=== PATIENT | male | born 1950 | race African-American/Black ===

== ENCOUNTER 2016-09-08 13:01 | Emergency (ER) | payer OTHER ==
[~2016-09-08] VITALS: Ht 172.7 cm; Wt 64.0 kg
[~2016-09-08 13:01] MED LIST: ADVA500A INH; COMBAER INH; METR-1 PO; PERC5TAB12 PO
[2016-09-08 13:02] VITALS: BP 130/69; PULSE 94; RESP 20; TEMP 98.6; O2SAT 95
[2016-09-08] MEDS ORDERED: IPRAAER INH (13:41)
[2016-09-08] MEDS ORDERED: ADVA500A INH (13:41)
--- NOTE | 2016-09-08 13:57 | PD ---
HPI Chief Complaint: Musculoskeletal Complaint Time Seen by Provider: 13:54 Travel History International Travel<30 days: No Contact w/Intl Traveler<30days: No Traveled to known affect area: No History of Present Illness HPI Patient is a 65-year-old male presenting to emergency for evaluation of left lower back pain. Patient states the pain started one week ago when he lifted a lawnmower into his truck. She states the pain is radiating down the back of his left leg as well. He denies any saddle paresthesia, dysuria, weakness, numbness. Patient has a history of sciatica, he's been utilizing Aleve with no relief of his symptoms. PFSH Past Medical History Arthritis: Yes Asthma: Yes Autoimmune Disease: No Blood Disorders: No Anxiety: Yes Depression: Yes Heart Rhythm Problems: No Cancer: No Cardiac Catheterization: Yes ( ABOUT 15 YEARS AGO) High Cholesterol: Yes Chemotherapy: No Chest Pain: No COPD: Yes Diabetes: No Diminished Hearing: No Endocrine: No Gastrointestinal Disorders: No GERD: Yes Glaucoma: No Genitourinary: No Hepatitis: Yes (HEP C; PT STATES CANNOT NOW FIND EVIDENCE OF IT) Hiatal Hernia: No Hypertension: Yes Kidney Stones: Yes Musculoskeletal: No Neurologic: No Psychiatric: No Reproductive: No Respiratory: Yes (Asthma ) Myocardial Infarction: No Radiation Therapy: No Renal Failure: No Sickle Cell Disease: No Sleep Apnea: No Thyroid Disease: No Ulcer: No Past Surgical History Abdominal Surgery: No AICD: No Arteriovenous Shunt: No Cardiac Surgery: Yes (HEART CATHETERIZATION) Ear Surgery: No Endocrine Surgery: No Eye Surgery: No Genitourinary Surgery: Yes (BX OF PROSTATE 04/07/06 MON; LITHOSTROPY FOR STONES) Gynecologic Surgery: No Insulin Pump: No Neurologic Surgery: No Oral Surgery: No Pacemaker: No Thoracic Surgery: No Other Surgery: Yes (BX OF PROSTATE, ) Social History Alcohol Use: Yes (OCC. LAST INTAKE 3 WEEKS) Tobacco Use: No Substance Use: No Allergies-Medications (Allergen,Severity, Reaction): Coded Allergies: No Known Allergies (Verified , 09/08/16) Reported Meds & Prescriptions Reported Meds & Active Scripts Active Flexeril (Cyclobenzaprine HCl) 10 Mg Tab 10 Mg PO TID PRN 10 Days Ibuprofen 800 Mg Tab 800 Mg PO Q8H PRN 10 Days Reported Combivent Respimat Inh (Ipratropium-Albuterol Inh) 20-100 Alf/Act Aero 1 Puff INH QID Combivent Respimat Inh (Ipratropium-Albuterol Inh) 20-100 Alf/Act Aero 1 Puff INH QID Advair Diskus Inh (Fluticasone-Salmeterol Inh) 500-50 Mcg/Blist Aer 1 Puff INH BID Rinse mouth after use. Review of Systems Except as stated in HPI: all other systems reviewed are Neg Musculoskeletal: Positive: Myalgias, Cramping, Pain Physical Exam Narrative GENERAL: Thin, well-developed, alert elderly male. Resting comfortably in no acute distress. SKIN: Focused skin assessment warm/dry. HEAD: Atraumatic. Normocephalic. EYES: Pupils equal and round. No scleral icterus. No injection or drainage. ENT: No nasal bleeding or discharge. Mucous membranes pink and moist. NECK: Trachea midline. No JVD. CARDIOVASCULAR: Regular rate and rhythm. No murmur appreciated. RESPIRATORY: No accessory muscle use. Clear to auscultation. Breath sounds equal bilaterally. GASTROINTESTINAL: Abdomen soft, non-tender, nondistended. Hepatic and splenic margins not palpable. MUSCULOSKELETAL: No obvious deformities. No clubbing. No cyanosis. No edema. Patient per spinal musculature in the lumbar region on the left side. 5/5 muscle strength in bilateral lower extremities, patient is neurovascularly intact. NEUROLOGICAL: Awake and alert. No obvious cranial nerve deficits. Motor grossly within normal limits. Normal speech. PSYCHIATRIC: Appropriate mood and affect; insight and judgment normal. Data Data Last Documented VS Vital Signs Date Time Temp Pulse Resp B/P Pulse Ox O2 Delivery O2 Flow Rate FiO2 09/08/16 13:02 98.6 94 20 130/69 95 Room Air Orders Ketorolac Inj (Toradol Inj) (09/08/16 14:00) Orphenadrine Inj (Norflex Inj) (09/08/16 14:00) Dexamethasone Inj (Decadron Inj) (09/08/16 14:00) Spine, Lumbar - Ltd (Ap & Lat) (09/08/16 ) MDM Medical Decision Making Medical Screen Exam Complete: Yes Emergency Medical Condition: Yes Interpretation(s) Vital Signs Date Time Temp Pulse Resp B/P Pulse Ox O2 Delivery O2 Flow Rate FiO2 09/08/16 13:02 98.6 94 20 130/69 95 Room Air Differential Diagnosis Strain versus sprain versus spasm versus cardiac pain versus sciatica versus fracture versus other Narrative Course Patient is a 65-year-old male presenting to emergency for evaluation of left lower back pain that was brought on after lifting a lawnmower into the bed of his truck one week ago. Patient appears consistent with a skeletal skeletal strain however we'll check a lumbar x-ray. Patient will be given Toradol, Norflex, dexamethasone the emergency department. We will reassess. X-ray of the lumbar spine shows moderate degenerative disc change at the L4 to L5 and L5 to S1 levels. Scoliosis, multiple right renal calculi. Patient's pain again is on the left and he denies any urinary complaints at this time. 1515- patient reports improvement in his pain. Patient was discharged home with prescriptions for a muscle relaxant as well as a short course of pain medication. He is encouraged to follow-up with his primary doctor, apply warm moist heat to affected area, continue range of motion exercises. He was advised to avoid exacerbating activities. Additionally patient was encouraged to return to emergency department for any new or worsening symptoms. Patient verbalized understanding of instructions. Patient is stable for discharge. Diagnosis Primary Impression: Strain of lumbar paraspinal muscle Qualified Code: S39.012A - Strain of lumbar paraspinal muscle, initial encounter Additional Impression: Sciatic leg pain Referrals: Primary Care Physician 3 days Patient Instructions: General Instructions, Muscle Spasm (ED), Muscle Strain ( ED), Sciatica (ED) Additional Instructions: Follow up with primary doctor Take medications as directed Apply warm moist heat to affected area, continue range of motion exercises, avoid bed rest, avoid exacerbating activities Return to the emergency department for New or worsening symptoms Med/Other Pt SpecificInfo: Prescription(s) given Scripts Cyclobenzaprine (Flexeril)10 Mg Tab10 Mg PO TID PRN (MUSCLE SPASM) 10 Days Ref 0 Prov:Ara Walters 09/08/16 Ibuprofen 800 Mg [id number] Mg PO Q8H PRN (Pain/Inflammation) 10 Days Ref 0 Prov:Ara Walters 09/08/16 Disposition: 01 DISCHARGE HOME Condition: Stable Ara Walters September 08, 2016 13:57
[2016-09-08] MEDS ORDERED: ORPHENADRINE INJ 60 MG/2 ML AMP IM ONE (14:00)
[2016-09-08] MEDS ORDERED: DEXAMETHASONE SOD PHOS 20 MG/5 ML VIAL IM ONE (14:00)
[2016-09-08] MEDS ORDERED: KETOROLAC TROMETHAMINE 60 MG/2 ML (IM) VIAL IM ONE (14:00)
--- NOTE | 2016-09-08 14:27 | RADRPT ---
EXAM DATE/TIME: 09/08/2016 14:02 [facility] COMPARISON: No previous studies available for comparison. 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 MEDICAL HISTORY : None. SURGICAL HISTORY : None. ENCOUNTER: Initial ACUITY: 1 day PAIN SCORE: 5/10 LOCATION: Bilateral L-spine FINDINGS: There are 5 [id number] lumbar-type vertebra. Degenerative disc changes are present L4-5 and L5-S 1 levels with disc space narrowing hypertrophic change. There is a minimal scoliosis. The sacrum is i ntact. There are multiple right renal calculi noted. There is no acute fracture or malalignment. CONCLUSION: 1. Moderate degenerative disc change at the L4-5 and L5-S1 levels. 2. Mild scoliosis. 3. Multiple right renal calculi. Arturo Wu MD on September 08, 2016 at 14:23 Board Certified Radiologist. This report was verified electronically.
[2016-09-08] MEDS ORDERED: IBUP800T23 PO (15:19)
[2016-09-08] MEDS ORDERED: CYCL1TAB29 PO (15:19)
== END 2016-09-08 16:10 | disposition home or self-care (01) ==
LOC: NEPD 13:01
DX: S39.012A Strain of muscle, fascia and tendon of lower back, initial encounter (principal); X50.0XXA Overexertion from strenuous movement or load, initial encounter; Y93.89 Activity, other specified
CPT/HCPCS: 72100; 96372; 99283; J1100; J1885; J2360

== ENCOUNTER 2017-02-12 20:44 | Emergency (ER) | payer OTHER ==
[~2017-02-12] VITALS: Ht 165.1 cm; Wt 68.0 kg
[~2017-02-12 20:44] MED LIST changes: -COMBAER INH; +CYCL1TAB29 PO; +IBUP800T23 PO; +IPRAAER INH; -METR-1 PO; -PERC5TAB12 PO
[2017-02-12 20:46] VITALS: BP 175/105; TEMP 98.7; O2SAT 89
[2017-02-12] MEDS ORDERED: SODIUM CHLORIDE 0.9% FLUSH 10 ML FLUSH IVF PRN (21:15)
[2017-02-12] MEDS ORDERED: methylPREDNISolone SOD SUCC 125 MG/2 ML VIAL IV PUSH ONE (21:15)
[2017-02-12] MEDS: RESP: ALBUTEROL 2.5 MG/IPRATROPIUM 0.5 MG NEB (SCH) INH ×3 (21:29→23:08)
[2017-02-12 21:33] VITALS: O2SAT 97
--- NOTE | 2017-02-12 21:51 | RADRPT ---
EXAM DATE/TIME: 02/12/2017 21:12 [facility] COMPARISON: CHEST SINGLE AP, September 15, 2014, 21:33. INDICATIONS : Short of breath. MEDICAL HISTORY : Asthma. SURGICAL HISTORY : None. ENCOUNTER: Initial ACUITY: 1 day PAIN SCORE: 0/10 LOCATION: Bilateral chest FINDINGS: A single view of the chest demonstrates the lungs to be symmetrically aerated without evidence of mas s, infiltrate or effusion. The cardiomediastinal contours are unremarkable. Osseous structures are intact. CONCLUSION: No acute disease. No significant change has occurred. Urban Oliver MD on February 12, 2017 at 21:49 Board Certified Radiologist. This report was verified electronically.
--- NOTE | 2017-02-12 21:53 | PD ---
HPI Chief Complaint: Respiratory Symptoms Time Seen by Provider: 21:06 Travel History International Travel<30 days: No Contact w/Intl Traveler<30days: No Traveled to known affect area: No History of Present Illness HPI Patient comes in for evaluation of asthma exacerbation ongoing for the past 2 days. Patient reports over the past 2 weeks has been having asthma flareup started getting bad 2 days ago. Patient states he saw his primary care doctor has been taking steroids and unknown antibiotic. Patient states he takes is albuterol with minimal improvement of symptoms. Symptoms continue progressively to get worse. Patient reports exertional also makes his breathing worse. Patient states this feels similar to his previous asthma exacerbations, but is not being well-controlled on current medications. Denies any fevers, chest pain, nausea, vomiting, abdominal pain, numbness or tingling, or headaches. PFSH Past Medical History Arthritis: Yes Asthma: Yes Autoimmune Disease: No Blood Disorders: No Anxiety: Yes Depression: Yes Heart Rhythm Problems: No Cancer: No Cardiac Catheterization: Yes ( ABOUT 15 YEARS AGO) High Cholesterol: Yes Chemotherapy: No Chest Pain: No COPD: Yes Diabetes: No Diminished Hearing: No Endocrine: No Gastrointestinal Disorders: No GERD: Yes Glaucoma: No Genitourinary: No Hepatitis: Yes (HEP C; PT STATES CANNOT NOW FIND EVIDENCE OF IT) Hiatal Hernia: No Hypertension: Yes Kidney Stones: Yes Musculoskeletal: No Neurologic: No Psychiatric: No Reproductive: No Respiratory: Yes (asthma) Myocardial Infarction: No Radiation Therapy: No Renal Failure: No Sickle Cell Disease: No Sleep Apnea: No Thyroid Disease: No Ulcer: No Past Surgical History Abdominal Surgery: No AICD: No Arteriovenous Shunt: No Cardiac Surgery: Yes (HEART CATHETERIZATION) Ear Surgery: No Endocrine Surgery: No Eye Surgery: No Genitourinary Surgery: Yes (BX OF PROSTATE 04/07/06 MON; LITHOSTROPY FOR STONES) Gynecologic Surgery: No Insulin Pump: No Neurologic Surgery: No Oral Surgery: No Pacemaker: No Thoracic Surgery: No Other Surgery: Yes (BX OF PROSTATE, ) Social History Alcohol Use: Yes (OCC. LAST INTAKE 3 WEEKS) Tobacco Use: No Substance Use: No Allergies-Medications (Allergen,Severity, Reaction): Coded Allergies: No Known Allergies (Verified , 09/08/16) Reported Meds & Prescriptions Reported Meds & Active Scripts Active Prednisone 20 Mg Tab 20 Mg PO BID Zithromax Z-Boaz (Azithromycin) 250 Mg Dspk 250 Mg PO DIRECTED 500 MG (2 tabs) day 1, then 1 tab days 2-5. Flexeril (Cyclobenzaprine HCl) 10 Mg Tab 10 Mg PO TID PRN 10 Days Ibuprofen 800 Mg Tab 800 Mg PO Q8H PRN 10 Days Reported Combivent Respimat Inh (Ipratropium-Albuterol Inh) 20-100 Snf/Act Aero 1 Puff INH QID Combivent Respimat Inh (Ipratropium-Albuterol Inh) 20-100 Snf/Act Aero 1 Puff INH QID Advair Diskus Inh (Fluticasone-Salmeterol Inh) 500-50 Mcg/Blist Aer 1 Puff INH BID Rinse mouth after use. Review of Systems Except as stated in HPI: all other systems reviewed are Neg Physical Exam Narrative GENERAL: Well-developed, well nourished, mild respiratory distress, and non-ill appearing. SKIN: Focused skin assessment warm and dry. HEAD: Atraumatic. Normocephalic. EYES: Pupils equal and round. EOMI. No scleral icterus. No injection or drainage. ENT: No nasal bleeding or discharge. Mucous membranes pink and moist. NECK: Trachea midline. Supple. No nuclear rigidity. CARDIOVASCULAR: Regular rate and rhythm. No murmur appreciated. RESPIRATORY: Accessory muscle use. Mild respiratory distress. Wheezing and decreased breath sounds noted throughout. Breath sounds are tight. Patient struggling to speak in full sentences. MUSCULOSKELETAL: No obvious deformities. No clubbing. No cyanosis. No edema. Full range of motion. NEUROLOGICAL: Awake and alert. No obvious cranial nerve deficits. Motor grossly within normal limits. Normal speech. PSYCHIATRIC: Appropriate mood and affect; insight and judgment normal. Data Data Last Documented VS Vital Signs Date Time Temp Pulse Resp B/P (MAP) Pulse Ox O2 Delivery O2 Flow Rate FiO2 02/13/17 02:45 02/13/17 01:38 92 18 97 Nasal Cannula 2.00 02/12/17 20:46 98.7 Orders Orders Complete Blood Count With Diff (02/12/17 21:07) Basic Metabolic Panel (Bmp) (02/12/17 21:07) Act Partial Throm Time (Ptt) (02/12/17 21:07) Prothrombin Time / Inr (Pt) (02/12/17 21:07) Magnesium (Mg) (02/12/17 21:07) Arterial Blood Gas (Abg) (02/12/17 21:07) Iv Access Insert/Monitor (02/12/17 21:07) Electrocardiogram (02/12/17 21:07) Ecg Monitoring (02/12/17 21:07) Oximetry (02/12/17 21:07) Oxygen Administration (02/12/17 21:07) Chest, Single Ap (02/12/17 21:07) Sodium Chloride 0.9% Flush (Ns Flush) (02/12/17 21:15) Methylprednisolone So Succ Inj (Solumedr (02/12/17 21:15) Albuterol-Ipratropium Neb (Duoneb Neb) (02/12/17 21:15) Albuterol-Ipratropium Neb (Duoneb Neb) (02/12/17 22:45) Labs Laboratory Tests Test 02/12/17 21:30 02/12/17 21:57 White Blood Count 10.8 TH/MM3 Red Blood Count 5.76 MIL/MM3 Hemoglobin 15.3 GM/DL Hematocrit 48.6 % Mean Corpuscular Volume 84.4 FL Mean Corpuscular Hemoglobin 26.7 PG Mean Corpuscular Hemoglobin Concent 31.6 % Red Cell Distribution Width 14.4 % Platelet Count 284 TH/MM3 Mean Platelet Volume 8.5 FL Neutrophils (%) (Auto) 76.0 % Lymphocytes (%) (Auto) 14.0 % Monocytes (%) (Auto) 7.2 % Eosinophils (%) (Auto) 1.9 % Basophils (%) (Auto) 0.9 % Neutrophils # (Auto) 8.2 TH/MM3 Lymphocytes # (Auto) 1.5 TH/MM3 Monocytes # (Auto) 0.8 TH/MM3 Eosinophils # (Auto) 0.2 TH/MM3 Basophils # (Auto) 0.1 TH/MM3 CBC Comment DIFF FINAL Differential Comment Prothrombin Time 10.8 SEC Prothromb Time International Ratio 1.0 RATIO Activated Partial Thromboplast Time 26.8 SEC Blood Urea Nitrogen 11 MG/DL Creatinine 1.09 MG/DL Random Glucose 89 MG/DL Calcium Level 9.3 MG/DL Magnesium Level 2.0 MG/DL Sodium Level 142 MEQ/L Potassium Level 3.8 MEQ/L Chloride Level 108 MEQ/L Carbon Dioxide Level 26.0 MEQ/L Anion Gap 8 MEQ/L Estimat Glomerular Filtration Rate 82 ML/MIN Blood Gas Puncture Site RT RADIAL Blood Gas Patient Temperature 98.6 Blood Gas HCO3 28 mmol/L Blood Gas Base Excess 3.8 mmol/L Blood Gas Oxygen Saturation 98 % Arterial Blood pH 7.39 Arterial Blood Partial Pressure CO2 48 mmHg Arterial Blood Partial Pressure O2 201 mmHG Arterial Blood Oxygen Content 21.0 Vol % Arterial Blood Carboxyhemoglobin 0.8 % Arterial Blood Methemoglobin 0.6 % Blood Gas Hemoglobin 15.0 G/DL Oxygen Delivery Device NASAL CANNULA Blood Gas Liter Flow 3 L/M MDM Medical Decision Making Medical Screen Exam Complete: Yes Emergency Medical Condition: Yes Differential Diagnosis Asthma exacerbation, COPD exacerbation, pneumonia, electrolyte abnormality, respiratory acidosis, respiratory alkalosis, other Narrative Course Patient was seen and examined. IV was established and patient was placed on cardiac monitoring. Initial laboratory radiological studies were ordered. Patient was given 60 mg of IV Solu-Medrol secondary to patient's very taken 2 doses steroids today along with DuoNeb 3. Will await to see how patient responds and reevaluate for further treatment. 2250 patient is reassessed status post initial DuoNeb treatment. Patient reports improvement of symptoms however continues using accessory muscles to breathe. Lungs reassessed though having some wheezing throughout both breath sounds overall have improved. Additional DuoNeb nebs were ordered. Patient speaking in full sentences easier now. Patient signed out to Dr. Rodriguez at the end of my shift. Please see his documentation for final diagnosis and disposition. Scripts Prednisone (Prednisone) 20 Mg Tab 20 MG PO BID, #10 TAB 0 Refills Prov: Jean Paul Rodriguez MD 02/13/17 Azithromycin (Zithromax Z-Boaz) 250 Mg Dspk 250 MG PO DIRECTED for Infection, #1 DSPK 0 Refills 500 MG (2 tabs) day 1, then 1 tab days 2-5. Prov: Jean Paul Rodriguez MD 02/13/17 Karan Zapata Feb 12, 2017 21:53
[2017-02-12 22:01] LABS: AUTOMATED NEUTROPHIL # 8.2 TH/MM3 (1.8-7.7); BASOPHIL # 0.1 TH/MM3 (0-0.2); BASOPHIL % 0.9 % (0.0-2.0); EOSINOPHIL # 0.2 TH/MM3 (0-0.4); EOSINOPHIL % 1.9 % (0.0-4.0); HEMATOCRIT 48.6 % (39.0-51.0); HEMO FLAGS DIFF FINAL; LYMPHOCYTE # 1.5 TH/MM3 (1.0-4.8); MEAN CELL VOLUME 84.4 FL (80.0-100.0); MEAN CORPUSCULAR HEMOGLOBIN 26.7 PG (27.0-34.0); MEAN CORPUSCULAR HGB CONC 31.6 % (32.0-36.0); MONO % 7.2 % (0.0-8.0); PLATELET COUNT 284 TH/MM3 (150-450); RED BLOOD COUNT 5.76 MIL/MM3 (4.50-5.90); RED CELL DISTRIBUTION WIDTH 14.4 % (11.6-17.2); WHITE BLOOD COUNT 10.8 TH/MM3 (4.0-11.0)
[2017-02-12 22:07] LABS: APTT (PATIENT) 26.8 SEC (24.3-30.1); PROTHROMBIN TIME - PATIENT 10.8 SEC (9.8-11.6)
[2017-02-12 22:22] LABS: POTASSIUM 3.8 MEQ/L (3.5-5.1)
[2017-02-13 01:38] VITALS: BP 140/81; PULSE 92; RESP 18; O2SAT 97
[2017-02-13 01:43] LABS: BLOOD GAS BASE EXCESS 3.8 mmol/L (-2-2); BLOOD GAS CARBOXYHEMOGLOBIN 0.8 % (0-4); BLOOD GAS HCO3 28 mmol/L (22-26); BLOOD GAS METHEMOGLOBIN 0.6 % (0-2); BLOOD GAS O2 HGB SATURATION 98 % (90-100); BLOOD GAS PCO2 48 mmHg (38-42); BLOOD GAS PO2 201 mmHG (61-120); CRITICAL VALUE NO; DRAW SITE RT RADIAL; LITER FLOW 3 L/M; NUMBER OF ARTERIAL PUNCTURES 1; OXYGEN DEVICE NASAL CANNULA; TEMP CORR TO 98.6; ULNAR PULSE PRESENT
[2017-02-13 01:44] LABS: STAT YES
--- NOTE | 2017-02-13 02:20 | PD ---
Physical Exam Narrative Patient was seen and examined with my podiatric assistant. Data Data Last Documented VS Vital Signs Date Time Temp Pulse Resp B/P (MAP) Pulse Ox O2 Delivery O2 Flow Rate FiO2 02/13/17 01:38 92 18 140/81 (100) 97 Nasal Cannula 2.00 02/12/17 20:46 98.7 Orders Orders Complete Blood Count With Diff (02/12/17 21:07) Basic Metabolic Panel (Bmp) (02/12/17 21:07) Act Partial Throm Time (Ptt) (02/12/17 21:07) Prothrombin Time / Inr (Pt) (02/12/17 21:07) Magnesium (Mg) (02/12/17 21:07) Arterial Blood Gas (Abg) (02/12/17 21:07) Iv Access Insert/Monitor (02/12/17 21:07) Electrocardiogram (02/12/17 21:07) Ecg Monitoring (02/12/17 21:07) Oximetry (02/12/17 21:07) Oxygen Administration (02/12/17 21:07) Chest, Single Ap (02/12/17 21:07) Sodium Chloride 0.9% Flush (Ns Flush) (02/12/17 21:15) Methylprednisolone So Succ Inj (Solumedr (02/12/17 21:15) Albuterol-Ipratropium Neb (Duoneb Neb) (02/12/17 21:15) Albuterol-Ipratropium Neb (Duoneb Neb) (02/12/17 22:45) Labs Laboratory Tests Test 02/12/17 21:30 02/12/17 21:57 White Blood Count 10.8 TH/MM3 Red Blood Count 5.76 MIL/MM3 Hemoglobin 15.3 GM/DL Hematocrit 48.6 % Mean Corpuscular Volume 84.4 FL Mean Corpuscular Hemoglobin 26.7 PG Mean Corpuscular Hemoglobin Concent 31.6 % Red Cell Distribution Width 14.4 % Platelet Count 284 TH/MM3 Mean Platelet Volume 8.5 FL Neutrophils (%) (Auto) 76.0 % Lymphocytes (%) (Auto) 14.0 % Monocytes (%) (Auto) 7.2 % Eosinophils (%) (Auto) 1.9 % Basophils (%) (Auto) 0.9 % Neutrophils # (Auto) 8.2 TH/MM3 Lymphocytes # (Auto) 1.5 TH/MM3 Monocytes # (Auto) 0.8 TH/MM3 Eosinophils # (Auto) 0.2 TH/MM3 Basophils # (Auto) 0.1 TH/MM3 CBC Comment DIFF FINAL Differential Comment Prothrombin Time 10.8 SEC Prothromb Time International Ratio 1.0 RATIO Activated Partial Thromboplast Time 26.8 SEC Blood Urea Nitrogen 11 MG/DL Creatinine 1.09 MG/DL Random Glucose 89 MG/DL Calcium Level 9.3 MG/DL Magnesium Level 2.0 MG/DL Sodium Level 142 MEQ/L Potassium Level 3.8 MEQ/L Chloride Level 108 MEQ/L Carbon Dioxide Level 26.0 MEQ/L Anion Gap 8 MEQ/L Estimat Glomerular Filtration Rate 82 ML/MIN Blood Gas Puncture Site RT RADIAL Blood Gas Patient Temperature 98.6 Blood Gas HCO3 28 mmol/L Blood Gas Base Excess 3.8 mmol/L Blood Gas Oxygen Saturation 98 % Arterial Blood pH 7.39 Arterial Blood Partial Pressure CO2 48 mmHg Arterial Blood Partial Pressure O2 201 mmHG Arterial Blood Oxygen Content 21.0 Vol % Arterial Blood Carboxyhemoglobin 0.8 % Arterial Blood Methemoglobin 0.6 % Blood Gas Hemoglobin 15.0 G/DL Oxygen Delivery Device NASAL CANNULA Blood Gas Liter Flow 3 L/M MDM Supervised Visit with DEYA: Yes Interpretation(s) Last Impressions Chest X-Ray 02/12/172106 Signed Impressions: Service Date/Time: Friday, February 12, 2017 21:12 - CONCLUSION: No acute disease. No significant change has occurred. Urban Oliver MD 2:18 AM. CBC within normal limit. ABG at 3 L nasal cannula, pH 7.39. PCO2 40. PO2 201. BMP within normal limit. Narrative Course Patient was offered admission. Patient refused. Patient wants to go home. Diagnosis Primary Impression: Acute asthma exacerbation Qualified Codes: J45.51 - Severe persistent asthma with (acute) exacerbation Patient Instructions: General Instructions Additional Instruction: Continue with nebulizer treatment at home every 4 hours as needed. Prednisone and Z-Boaz as directed. Follow-up with personal physician. Return if worse. Med/Other Pt SpecificInfo: Prescription(s) given Scripts Prednisone (Prednisone) 20 Mg Tab 20 MG PO BID, #10 TAB 0 Refills Prov: Jean Paul Rodriguez MD 02/13/17 Azithromycin (Zithromax Z-Boaz) 250 Mg Dspk 250 MG PO DIRECTED for Infection, #1 DSPK 0 Refills 500 MG (2 tabs) day 1, then 1 tab days 2-5. Prov: Jean Paul Rodriguez MD 02/13/17 Disposition: 01 DISCHARGE HOME Condition: Stable Jean Paul Rodriguez MD Feb 13, 2017 02:20
[2017-02-13] MEDS ORDERED: ZITHTAB PO (02:25)
[2017-02-13] MEDS ORDERED: PRED20 PO (02:25)
--- NOTE | 2017-02-13 12:24 | EKG ---
Date Performed: 02/12/2017 Time Performed: 20:48:58 PTAGE: 66 years EKG: SINUS TACHYCARDIA POSSIBLE RIGHT ATRIAL ENLARGEMENT ABNORMAL RHYTHM ECG Compared to prior t racing no significant change DOCTOR: Nette [place] Interpretating Date/Time 02/13/2017 12:21:51
== END 2017-02-13 02:46 | disposition home or self-care (01) ==
LOC: NEPE 20:44
DX: J45.51 Severe persistent asthma with (acute) exacerbation (principal); R94.31 Abnormal electrocardiogram [ECG] [EKG]; Z79.899 Other long term (current) drug therapy
CPT/HCPCS: 36600; 71010; 80048; 82805; 83735; 85025; 85610; 85730; 93005; 94640; 94664; 96374; 99285; J2930

== ENCOUNTER 2017-05-12 20:19 | Emergency (ER) | payer OTHER ==
[~2017-05-12 20:19] MED LIST changes: +CYCL10TA PO; -CYCL1TAB29 PO; +IBUP1TAB7 PO; -IBUP800T23 PO; +PRED20 PO; +ZITHTAB PO
[2017-05-12 20:24] VITALS: BP 192/91; PULSE 108; RESP 26; TEMP 98.6; O2SAT 95
--- NOTE | 2017-05-12 20:59 | PD ---
HPI Chief Complaint: Respiratory Symptoms Time Seen by Provider: 20:51 Travel History International Travel<30 days: No Contact w/Intl Traveler<30days: No Traveled to known affect area: No History of Present Illness HPI Patient 66-year-old male presents emergency department for shortness of breath. The patient states he is just finishing a steroid regimen of 30 mg daily, taking his treatments and still continues to have shortness of breath. He states that he doesn't actually have COPD that it actually asthma. Denies any fever, mild dry cough, no nausea no vomiting no fevers. States symptoms are moderate, states he certainly had worsen the past, associated signs symptoms as above, context as above, not relieved by treatments and steroids at home. No history of long travel, no blood clots in his legs or his chest in the past. PFSH Past Medical History Arthritis: Yes Asthma: Yes Autoimmune Disease: No Blood Disorders: No Anxiety: Yes Depression: Yes Heart Rhythm Problems: No Cancer: No Cardiac Catheterization: Yes ( ABOUT 15 YEARS AGO) High Cholesterol: Yes Chemotherapy: No Chest Pain: No COPD: Yes Diabetes: No Diminished Hearing: No Endocrine: No Gastrointestinal Disorders: No GERD: Yes Glaucoma: No Genitourinary: No Hepatitis: Yes (HEP C; PT STATES CANNOT NOW FIND EVIDENCE OF IT) Hiatal Hernia: No Hypertension: Yes Kidney Stones: Yes Musculoskeletal: No Neurologic: No Psychiatric: No Reproductive: No Respiratory: Yes (asthma) Myocardial Infarction: No Radiation Therapy: No Renal Failure: No Sickle Cell Disease: No Sleep Apnea: No Thyroid Disease: No Ulcer: No Past Surgical History Abdominal Surgery: No AICD: No Arteriovenous Shunt: No Cardiac Surgery: Yes (HEART CATHETERIZATION) Ear Surgery: No Endocrine Surgery: No Eye Surgery: No Genitourinary Surgery: Yes (BX OF PROSTATE 04/07/06 MON; LITHOSTROPY FOR STONES) Gynecologic Surgery: No Insulin Pump: No Neurologic Surgery: No Oral Surgery: No Pacemaker: No Thoracic Surgery: No Other Surgery: Yes (BX OF PROSTATE, ) Social History Alcohol Use: Yes (OCC. LAST INTAKE 3 WEEKS) Tobacco Use: No Substance Use: No Allergies-Medications (Allergen,Severity, Reaction): Coded Allergies: No Known Allergies (Verified , 09/08/16) Reported Meds & Prescriptions Reported Meds & Active Scripts Active Prednisone 10 Mg Tab 10 Mg PO DIRECTED 60mg daily for 4 days, then 40mg daily for 3 days, then 20mg daily for 3 days, then 10mg daily for 3 days. Prednisone 20 Mg Tab 20 Mg PO BID Zithromax Z-Boaz (Azithromycin) 250 Mg Dspk 250 Mg PO DIRECTED 500 MG (2 tabs) day 1, then 1 tab days 2-5. Flexeril (Cyclobenzaprine HCl) 10 Mg Tab 10 Mg PO TID PRN 10 Days Ibuprofen 800 Mg Tab 800 Mg PO Q8H PRN 10 Days Reported Combivent Respimat Inh (Ipratropium-Albuterol Inh) 20-100 Custodial/Act Aero 1 Puff INH QID Combivent Respimat Inh (Ipratropium-Albuterol Inh) 20-100 Custodial/Act Aero 1 Puff INH QID Advair Diskus Inh (Fluticasone-Salmeterol Inh) 500-50 Mcg/Blist Aer 1 Puff INH BID Rinse mouth after use. Review of Systems Except as stated in HPI: all other systems reviewed are Neg Physical Exam Narrative GENERAL: Well-developed well-nourished, thin, tachypneic but in no obvious distress. SKIN: Focused skin assessment warm/dry. HEAD: Atraumatic. Normocephalic. EYES: Pupils equal and round. No scleral icterus. No injection or drainage. ENT: No nasal bleeding or discharge. Mucous membranes pink and moist. NECK: Trachea midline. No JVD. CARDIOVASCULAR: Regular rate and rhythm. No murmur appreciated. RESPIRATORY: There are some retractions supraclavicular early as well as subcostally. No intercostal retractions.. Inspiratory and his story wheezes and rhonchi, good air entry however, tachypneic.. Breath sounds equal bilaterally. GASTROINTESTINAL: Abdomen soft, non-tender, nondistended. Hepatic and splenic margins not palpable. MUSCULOSKELETAL: No obvious deformities. No clubbing. No cyanosis. No edema. NEUROLOGICAL: Awake and alert. No obvious cranial nerve deficits. Motor grossly within normal limits. Normal speech. PSYCHIATRIC: Appropriate mood and affect; insight and judgment normal. Data Data Last Documented VS Vital Signs Date Time Temp Pulse Resp B/P (MAP) Pulse Ox O2 Delivery O2 Flow Rate FiO2 05/13/17 00:09 05/12/17 23:20 80 20 98 Room Air 05/12/17 20:24 98.6 Orders Orders Complete Blood Count With Diff (05/12/17 20:47) Comprehensive Metabolic Panel (05/12/17 20:47) Magnesium (Mg) (05/12/17 20:47) Chest, Pa & Lat (05/12/17 20:47) Electrocardiogram (05/12/17 ) Albuterol-Ipratropium Neb (Duoneb Neb) (05/12/17 21:00) Calcium Carbonate Chew (Tums Chew) (05/12/17 23:15) Ed Discharge Order (05/13/17 00:06) Labs Laboratory Tests Test 05/12/17 21:20 White Blood Count 8.8 TH/MM3 Red Blood Count 5.64 MIL/MM3 Hemoglobin 15.6 GM/DL Hematocrit 47.5 % Mean Corpuscular Volume 84.3 FL Mean Corpuscular Hemoglobin 27.7 PG Mean Corpuscular Hemoglobin Concent 32.9 % Red Cell Distribution Width 14.0 % Platelet Count 258 TH/MM3 Mean Platelet Volume 9.0 FL Neutrophils (%) (Auto) 76.7 % Lymphocytes (%) (Auto) 14.4 % Monocytes (%) (Auto) 8.4 % Eosinophils (%) (Auto) 0.2 % Basophils (%) (Auto) 0.3 % Neutrophils # (Auto) 6.8 TH/MM3 Lymphocytes # (Auto) 1.3 TH/MM3 Monocytes # (Auto) 0.7 TH/MM3 Eosinophils # (Auto) 0.0 TH/MM3 Basophils # (Auto) 0.0 TH/MM3 CBC Comment DIFF FINAL Differential Comment Blood Urea Nitrogen 17 MG/DL Creatinine 1.19 MG/DL Random Glucose 78 MG/DL Total Protein 7.8 GM/DL Albumin 3.9 GM/DL Calcium Level 8.8 MG/DL Magnesium Level 2.2 MG/DL Alkaline Phosphatase 96 U/L Aspartate Amino Transf (AST/SGOT) 49 U/L Alanine Aminotransferase (ALT/SGPT) 55 U/L Total Bilirubin 0.3 MG/DL Sodium Level 144 MEQ/L Potassium Level 4.1 MEQ/L Chloride Level 109 MEQ/L Carbon Dioxide Level 28.9 MEQ/L Anion Gap 6 MEQ/L Estimat Glomerular Filtration Rate 74 ML/MIN [facility] Medical Decision Making Medical Screen Exam Complete: Yes Emergency Medical Condition: Yes Differential Diagnosis Asthma exacerbation, pneumonia, bronchitis. Narrative Course Patient roomed in emergency department, given breathing treatments, patient is still with some retractions continued to saturate well while in the emergency department, I recommended a walk test form however the patient states she's feeling well enough to go home, had a lengthy discussion with the patient regarding his continued to have retractions and I'm concerned that he may ultimately need to come back, he verbalized understanding and would like to go home and come back if needed. I then discussed the risks of leaving at this time including respiratory collapse and disability, he verbalized understanding but still like to go home and he understands he can call 911 should he need in the future. Calm and collected the patient is understanding of the risks of leaving at this time even though he was offered observation status. He was welcome to return to the emergency department any time. Diagnosis Primary Impression: COPD exacerbation Med/Other Pt SpecificInfo: Prescription(s) given Scripts Prednisone (Prednisone) 10 Mg Tab 10 MG PO DIRECTED, #45 TAB 0 Refills 60mg daily for 4 days, then 40mg daily for 3 days, then 20mg daily for 3 days, then 10mg daily for 3 days. Prov: Neal Zimmerman MD 05/13/17 Disposition: 01 DISCHARGE HOME Condition: Stable Neal Zimmerman MD May 12, 2017 20:59
[2017-05-12] MEDS ORDERED: RESP: ALBUTEROL 2.5 MG/IPRATROPIUM 0.5 MG NEB (SCH) NEB ONE (21:00)
--- NOTE | 2017-05-12 21:28 | RADRPT ---
EXAM DATE/TIME: 05/12/2017 21:03 [facility] COMPARISON: CHEST SINGLE AP, February 12, 2017, 21:12. INDICATIONS : Short of breath MEDICAL HISTORY : Asthma SURGICAL HISTORY : None. ENCOUNTER: Initial ACUITY: 4 - 6 days PAIN SCORE: 0/10 LOCATION: chest FINDINGS: PA and lateral views of the chest demonstrate the lungs to be symmetrically aerated without evidence of mass, infiltrate or effusion. The cardiomediastinal contours are unremarkable. Osseous structure s are intact. CONCLUSION: Normal examination. Jasson Ken MD on May 12, 2017 at 21:25 Board Certified Radiologist. This report was verified electronically.
[2017-05-12 22:23] LABS: ALBUMIN 3.9 GM/DL (3.4-5.0); ALT (GPT) 55 U/L (12-78); AST (GOT) 49 U/L (15-37); BICARBONATE 28.9 MEQ/L (21.0-32.0); BLOOD UREA NITROGEN 17 MG/DL (7-18); CALCIUM 8.8 MG/DL (8.5-10.1); CHLORIDE 109 MEQ/L (98-107); CREATININE 1.19 MG/DL (0.60-1.30); GLOMERULAR FILTRATION RATE 74 ML/MIN (>89); GLUCOSE,RANDOM 78 MG/DL (74-106); MAGNESIUM 2.2 MG/DL (1.5-2.5); SODIUM (NA) 144 MEQ/L (136-145)
[2017-05-12 22:26] LABS: ALKALINE PHOSPHATASE 96 U/L (45-117); TOTAL BILIRUBIN ADULT 0.3 MG/DL (0.2-1.0); TOTAL PROTEIN 7.8 GM/DL (6.4-8.2)
[2017-05-12 23:07] LABS: AUTOMATED NEUTROPHIL # 6.8 TH/MM3 (1.8-7.7); BASOPHIL % 0.3 % (0.0-2.0); EOSINOPHIL % 0.2 % (0.0-4.0); HEMATOCRIT 47.5 % (39.0-51.0); HEMOGLOBIN 15.6 GM/DL (13.0-17.0); LYMPH % 14.4 % (9.0-44.0); LYMPHOCYTE # 1.3 TH/MM3 (1.0-4.8); MEAN CELL VOLUME 84.3 FL (80.0-100.0); MEAN CORPUSCULAR HEMOGLOBIN 27.7 PG (27.0-34.0); MEAN CORPUSCULAR HGB CONC 32.9 % (32.0-36.0); MONO % 8.4 % (0.0-8.0); MONOCYTE # 0.7 TH/MM3 (0-0.9); NEUT % 76.7 % (16.0-70.0); PLATELET COUNT 258 TH/MM3 (150-450); RED BLOOD COUNT 5.64 MIL/MM3 (4.50-5.90); WHITE BLOOD COUNT 8.8 TH/MM3 (4.0-11.0)
[2017-05-12] MEDS ORDERED: CALCIUM CARBONATE 500 MG CHEWABLE TAB CHEW ONE (23:15)
[2017-05-12 23:20] VITALS: BP 181/91; PULSE 80; RESP 20; O2SAT 98
[2017-05-13] MEDS ORDERED: PRED10 PO (00:06)
--- NOTE | 2017-05-13 16:44 | EKG ---
Date Performed: 05/12/2017 Time Performed: 21:28:02 PTAGE: 66 years EKG: Sinus rhythm VOLTAGE CRITERIA FOR LVH ABNORMAL ECG PREVIOUS TRACING : 02/12/2017 20.48 Voltage has increased since prior tracing. Clinical correla tion is recommended. DOCTOR: Jose Wynn Interpretating Date/Time 05/13/2017 16:43:36
== END 2017-05-13 00:28 | disposition home or self-care (01) ==
LOC: NEPE 20:19
DX: J44.1 Chronic obstructive pulmonary disease with (acute) exacerbation (principal); R94.31 Abnormal electrocardiogram [ECG] [EKG]; M19.90 Unspecified osteoarthritis, unspecified site; F41.9 Anxiety disorder, unspecified; F32.9 Major depressive disorder, single episode, unspecified; E78.00 Pure hypercholesterolemia, unspecified; K21.9 Gastro-esophageal reflux disease without esophagitis; I10 Essential (primary) hypertension; Z86.19 Personal history of other infectious and parasitic diseases
CPT/HCPCS: 71046; 80053; 83735; 85025; 93005; 94640; 94664; 99285

== ENCOUNTER 2017-05-14 11:17 | Emergency (ER) | payer OTHER ==
[~2017-05-14] VITALS: Ht 172.7 cm; Wt 63.5 kg
[~2017-05-14 11:17] MED LIST changes: +PRED10 PO
[2017-05-14 11:18] VITALS: BP 156/89; PULSE 106; RESP 20; TEMP 99; O2SAT 94
== END 2017-05-14 13:00 | disposition left against medical advice (07) ==
LOC: NED 11:17
DX: J06.9 Acute upper respiratory infection, unspecified (principal)
CPT/HCPCS: 99281

== ENCOUNTER 2017-08-01 10:29 | Emergency (ER) | payer OTHER ==
[~2017-08-01] VITALS: Ht 172.7 cm; Wt 60.0 kg
[2017-08-01 10:33] VITALS: BP 161/79; PULSE 98; RESP 22; TEMP 98.3; O2SAT 94
[2017-08-01] MEDS ORDERED: methylPREDNISolone SOD SUCC 125 MG/2 ML VIAL IV PUSH ONE (10:45)
[2017-08-01] MEDS ORDERED: SODIUM CHLORIDE 0.9% FLUSH 10 ML FLUSH IVF PRN (10:45)
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
[2017-08-01] MEDS: RESP: ALBUTEROL 2.5 MG/IPRATROPIUM 0.5 MG NEB (SCH) INH ×4 (10:52→13:27)
[2017-08-01] MEDS: MAGNESIUM SULFATE 1 GM PREMIX 100 ML IV SCH ×2 (11:30→12:42)
--- NOTE | 2017-08-01 11:30 | RADRPT ---
EXAM DATE/TIME: 08/01/2017 11:04 [facility] COMPARISON: CHEST SINGLE AP, February 12, 2017, 21:12. INDICATIONS : Shortness of breath. MEDICAL HISTORY : Asthma. SURGICAL HISTORY : Cardiac catherterization. ENCOUNTER: Initial ACUITY: 1 day PAIN SCORE: 0/10 LOCATION: Bilateral chest FINDINGS: 2 AP portable erect views of the chest demonstrates the lungs to be symmetrically aerated without khadijah dence of mass, infiltrate or effusion. The cardiomediastinal contours are unremarkable. Osseous str uctures are intact. CONCLUSION: No acute disease. Arturo Wu MD on August 01, 2017 at 11:23 Board Certified Radiologist. This report was verified electronically.
[2017-08-01 11:48] LABS: BASOPHIL # 0.1 TH/MM3 (0-0.2); BASOPHIL % 0.9 % (0.0-2.0); EOSINOPHIL # 0.1 TH/MM3 (0-0.4); HEMATOCRIT 47.5 % (39.0-51.0); HEMOGLOBIN 15.5 GM/DL (13.0-17.0); LYMPH % 14.2 % (9.0-44.0); LYMPHOCYTE # 1.1 TH/MM3 (1.0-4.8); MEAN CELL VOLUME 83.7 FL (80.0-100.0); MEAN CORPUSCULAR HEMOGLOBIN 27.3 PG (27.0-34.0); MEAN CORPUSCULAR HGB CONC 32.6 % (32.0-36.0); MEAN PLATELET VOLUME 8.5 FL (7.0-11.0); MONO % 6.5 % (0.0-8.0); MONOCYTE # 0.5 TH/MM3 (0-0.9); NEUT % 77.4 % (16.0-70.0); PLATELET COUNT 267 TH/MM3 (150-450); RED BLOOD COUNT 5.68 MIL/MM3 (4.50-5.90); RED CELL DISTRIBUTION WIDTH 14.6 % (11.6-17.2); WHITE BLOOD COUNT 7.8 TH/MM3 (4.0-11.0)
[2017-08-01 12:01] LABS: BICARBONATE 25.8 MEQ/L (21.0-32.0); CALCIUM 9.2 MG/DL (8.5-10.1); CREATININE 1.22 MG/DL (0.60-1.30)
[2017-08-01 12:26] VITALS: BP 158/85; PULSE 113; RESP 20; O2SAT 94
[2017-08-01] MEDS ORDERED: guaiFENesin E.R. 600 MG TAB PO ONE (13:15)
[2017-08-01 14:30] VITALS: BP 175/89; PULSE 116; RESP 20; O2SAT 94
[2017-08-01] MEDS ORDERED: PRED50 PO (14:33)
[2017-08-01 15:34] VITALS: BP 157/85
--- NOTE | 2017-08-02 14:03 | EKG ---
Date Performed: 08/01/2017 Time Performed: 10:44:42 PTAGE: 66 years EKG: Sinus rhythm POSSIBLE RIGHT ATRIAL ENLARGEMENT POSSIBLE LEFT ATRIAL ENLARGEMENT NONSPECIFIC T-WAVE ABNORMALITY JEAN CARLOS RDERLINE ECG Compared to PREVIOUS TRACING , minor nonspecific T-wave changes are now present in the inferior leads . PREVIOUS TRACIN05/12/2017 21.28.02 DOCTOR: Jigar Vallecillo Interpretating Date/Time 08/02/2017 14:01:56
== END 2017-08-01 15:42 | disposition home or self-care (01) ==
LOC: NEPC 10:29
DX: J45.41 Moderate persistent asthma with (acute) exacerbation (principal)
CPT/HCPCS: 71045; 80048; 85025; 93005; 94640; 94664; 96365; 96366; 96367; 96375; 99291; J2930; J3475

== ENCOUNTER 2018-01-28 18:59 | Inpatient (IN) ==
[2018-01-28] MEDS ORDERED: MethylPREDNISolone Sod Succinate Inj 125 MG/2 ML Vial IV.PUSH ONE (19:20)
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
[2018-01-28 19:53] LABS: Baso # (Auto) 0.1 th/mm3 (0.0-0.2); Eos # (Auto) 0.1 th/mm3 (0.0-0.4); Eos % (Auto) 0.7 % (0.0-4.0); Hematocrit 52.2 % (39.0-51.0); Hemoglobin 16.6 gm/dL (13.0-17.0); Lymph # (Auto) 0.8 th/mm3 (1.0-4.8); Lymph % (Auto) 6.4 % (9.0-44.0); Mean Corpuscular HGB Conc 31.7 % (32.0-36.0); Mean Corpuscular Hemoglobin 26.8 pg (27.0-34.0); Mean Corpuscular Volume 84.6 fL (80.0-100.0); Mean Platelet Volume 8.1 fL (7.0-11.0); Mono # (Auto) 0.5 th/mm3 (0.0-0.9); Mono % (Auto) 3.7 % (0.0-8.0); Neut # (Auto) 11.1 th/mm3 (1.8-7.7); Neut % (Auto) 88.2 % (16.0-70.0); Platelet Count 303 th/mm3 (150-450); Red Blood Count 6.17 mil/mm3 (4.50-5.90); Red Cell Distribution Width 14.5 % (11.6-17.2); White Blood Count 12.6 th/mm3 (4.0-11.0)
[2018-01-28 20:27] LABS: Alanine Aminotransferase 37 U/L (12-78)
[2018-01-28 20:33] LABS: Albumin 3.9 g/dL (3.4-5.0); Anion Gap 7 meq/L (5-15); Aspartate Aminotransferase 36 U/L (15-37); Blood Urea Nitrogen 17 mg/dL (7-18); Calcium 8.9 mg/dL (8.5-10.1); Carbon Dioxide 24.4 meq/L (21.0-32.0); Chloride 108 meq/L (98-107); Glomerular Filtration Rate 69 mL/min (>89); Glucose,Random 88 mg/dL (74-106); Sodium 139 meq/L (136-145)
[2018-01-28 20:35] LABS: Platelet Estimate Normal (Normal); Platelet Morphology Normal (Normal); RBC Morphology Normal (Normal)
--- NOTE | 2018-01-28 20:36 | XR ---
EXAM DATE: 01/28/2018 7:20 PM EDT AGE/SEX: 67 years / Male INDICATIONS: Short of breath. CLINICAL DATA: This is the patient's initial encounter. Patient reports that signs and symptoms have been present for 2 days and indicates a pain score of 0/10. MEDICAL/SURGICAL HISTORY: None. None. [place] [facility] [place]. . FINDINGS: A single AP view of the chest demonstrates the lungs to be symmetrically aerated without evidence of mass, infiltrate or effusion. The cardiomediastinal contours are unremarkable. Osseous structures a re intact. CONCLUSION: The lungs are clear. Electronically signed by: Ze Esquivel MD 01/28/2018 8:35 PM EDT
[2018-01-28 20:41] LABS: Alkaline Phosphatase 124 U/L (45-117); Creatine Kinase 277 U/L (39-308); Total Protein 8.9 g/dL (6.4-8.2)
[2018-01-28 20:53] LABS: Creatine Kinase MB 5.9 ng/mL (0.5-3.6)
[2018-01-28 21:18] LABS: ABG PCO2 47 mmHg (38-42); ABG PO2 68 mmHg (61-120)
[2018-01-28] MEDS ORDERED: WATER IV.SIG ONE ×6 (22:46)
[2018-01-28] MEDS ORDERED: ACETYLCYSTEINE IV.SIG ONE ×6 (22:46)
[2018-01-28] MEDS ORDERED: DEXTROSE 5% IV.SIG ONE ×6 (22:46)
[2018-01-28] MEDS ORDERED: Bisacodyl 10 MG Supp RECTAL PRN (23:04)
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
[2018-01-29] MEDS: Azithromycin Inj 500 MG in Sodium Chlor 0.9% Inj 250 ML IV.SIG SCH ×2 (00:48→23:57)
[2018-01-29] MEDS: MethylPREDNISolone Sod Succinate Inj 40 MG/ML Vial IV.PUSH SCH ×4 (00:59→19:22)
[2018-01-29 04:05] LABS: Baso % (Auto) 0.2 % (0.0-2.0); Hematocrit 48.5 % (39.0-51.0); Lymph # (Auto) 0.5 th/mm3 (1.0-4.8); Lymph % (Auto) 4.9 % (9.0-44.0); Mean Corpuscular Hemoglobin 27.5 pg (27.0-34.0); Mean Corpuscular Volume 83.2 fL (80.0-100.0); Mean Platelet Volume 8.1 fL (7.0-11.0); Mono # (Auto) 0.1 th/mm3 (0.0-0.9); Mono % (Auto) 0.6 % (0.0-8.0); Neut # (Auto) 9.8 th/mm3 (1.8-7.7); Neut % (Auto) 94.3 % (16.0-70.0); Platelet Count 287 th/mm3 (150-450); Red Blood Count 5.83 mil/mm3 (4.50-5.90); Red Cell Distribution Width 14.1 % (11.6-17.2); White Blood Count 10.4 th/mm3 (4.0-11.0)
[2018-01-29 04:29] LABS: Alanine Aminotransferase 32 U/L (12-78); Albumin 3.7 g/dL (3.4-5.0); Anion Gap 7 meq/L (5-15); Aspartate Aminotransferase 25 U/L (15-37); Blood Urea Nitrogen 16 mg/dL (7-18); Calcium 8.7 mg/dL (8.5-10.1); Carbon Dioxide 26.1 meq/L (21.0-32.0); Chloride 108 meq/L (98-107); Glomerular Filtration Rate 81 mL/min (>89); Glucose,Random 146 mg/dL (74-106); Potassium 4.4 meq/L (3.5-5.1); Sodium 141 meq/L (136-145)
[2018-01-29 04:31] LABS: Alkaline Phosphatase 113 U/L (45-117); Total Protein 7.7 g/dL (6.4-8.2)
[2018-01-29] MEDS: Budesonide-Formoterol 160/4.5 MCG 6 GM Inhaler INH SCH ×2 (08:49→21:52)
--- NOTE | 2018-01-29 09:48 | MB ---
cc: Linda Mckeon MD DATE: 01/29/2018 REASON FOR CONSULTATION: COPD exacerbation. HISTORY OF PRESENT ILLNESS: The patient is a 67-year-old -Thai male who has been complaining of worsening shortness of breath for 2-3 days prior to his hospitalization; cough and expectoration of whitish mucoid secretion. Denies history of fever, chills, hemoptysis, TB or industrial exposure. The patient did smoke until about age 50 when he had stopped smoking. PAST MEDICAL HISTORY: Notable for COPD. Denies history of diabetes, hypertension, heart disease. FAMILY HISTORY: Noncontributory. SOCIAL HISTORY: Smoked a pack of cigarettes a day until about age 50 when he had stopped smoking. MEDICATIONS: Solu-Medrol, DuoNeb. REVIEW OF SYSTEMS: A 12-point review of systems as per HPI and past history, otherwise negative. PHYSICAL EXAMINATION: GENERAL: On exam, the patient is alert. VITAL SIGNS: Temperature 98, pulse 90, respirations 20, blood pressure 170/78. HEENT: Unremarkable. Eyes without icterus. NECK: Without adenopathy or thyroid enlargement. CHEST: Scattered rhonchi bilaterally. CARDIAC: PMI distant. S1, S2 audible. No murmur. No rub. ABDOMEN: Lax, audible bowel sounds. PSYCHIATRIC: No clubbing, cyanosis or edema. IMAGING: Chest x-ray: No acute infiltrates noted. LABORATORY DATA: White count 12,000, hemoglobin 16, hematocrit 52. Sodium 139, potassium 5.0, BUN 17, creatinine 1.2. DIAGNOSTIC DATA: Arterial blood gas: PH 7.36, pCO2 of 47, pO2 68. IMPRESSION: Chronic obstructive pulmonary disease in exacerbation; asthma component. PLAN: The patient will be maintained on oxygen therapy as needed; bronchodilator therapy, steroid therapy. Once able switch to oral therapy and depending on progress, proceed accordingly. Accordingly, we will check the patient's pulmonary function to assess his baseline status when he is able to do so. I do thank you for asking us to partake in Mr. Rivera's care. Linda Mckeon MD WWW/meagan , 08:50 AM , 08:58 AM
--- NOTE | 2018-01-29 10:09 | P.PN ---
Subjective Interval history: Nursing denies any deterioration since last night. Patient was weaned from BiPAP to nasal cannula. Patient himself denies any new complaints. Physical Exam Vital signs: Vital Signs 01/28/18 19:06 01/28/18 19:24 01/28/18 19:50 Temperature 98 F Pulse Rate 115 H 109 H 109 H Respiratory Rate 36 H 35 H 35 H Blood Pressure 179/97 H 190/90 H Pulse Oximetry 89 L 94 L 01/28/18 20:25 01/28/18 21:09 01/28/18 21:49 Temperature Pulse Rate 115 H 121 H Respiratory Rate 32 H 32 H Blood Pressure 169/83 H 153/78 H Pulse Oximetry 96 94 L 98 01/28/18 23:40 01/29/18 00:01 01/29/18 00:26 Temperature Pulse Rate 105 H 83 Respiratory Rate 26 H 22 Blood Pressure 134/67 156/85 H Pulse Oximetry 97 95 98 01/29/18 03:35 01/29/18 04:30 01/29/18 04:51 Temperature Pulse Rate 105 H 104 H 111 H Respiratory Rate 20 20 21 Blood Pressure 135/79 135/80 Pulse Oximetry 98 97 01/29/18 05:10 01/29/18 05:30 01/29/18 06:00 Temperature Pulse Rate 97 H 103 H Respiratory Rate 34 H 34 H Blood Pressure 152/76 H 149/87 H Pulse Oximetry 98 99 99 01/29/18 08:24 01/29/18 09:42 01/29/18 09:49 Temperature 97.5 F L Pulse Rate 85 88 105 H Respiratory Rate 27 H 22 Blood Pressure 172/87 H Pulse Oximetry 96 Intake & Output 01/28/18 01/29/18 01/29/18 18:59 06:59 18:59 Intake Total 250 / 250 Balance 250 / 250 Weight 63.049 kg Intake: IV 250 / 250 Azithromycin Inj 500 MG In NS 250 / 250 Inj 250 ML @ 250 mls/hr IV.SIG Q24H ANTONI Rx#:[id number] Narrative: Significantly diminished breath sounds with very faint wheezing heard Mild to moderately labored breathing but on nasal cannula Has mild conversive dyspnea Results - Labs CBC & Chem 7: 01/29/18 03:13 01/29/18 03:13 Laboratory Results - last 24 hr 01/28/18 01/28/18 01/28/18 19:25 19:25 19:25 WBC 12.6 H RBC 6.17 H Hgb 16.6 Hct 52.2 H MCV 84.6 MCH 26.8 L MCHC 31.7 L RDW 14.5 Plt Count 303 MPV 8.1 Prelim Diff (Auto) Slide review pending Neut % (Auto) 88.2 H Lymph % (Auto) 6.4 L [place] % (Auto) 3.7 Eos % (Auto) 0.7 Baso % (Auto) 1.0 Neut # (Auto) 11.1 H Lymph # (Auto) 0.8 L [place] # (Auto) 0.5 Eos # (Auto) 0.1 Baso # (Auto) 0.1 WBC Differential . Diff Scan Auto diff confirmed Differential Comment . Platelet Estimate Normal Platelet Morphology Normal RBC Morphology Normal Puncture Site Patient Temperature O2 Saturation ABG pH ABG pCO2 ABG pO2 ABG HCO3 ABG O2 Content ABG Base Excess ABG Methemoglobin [place] Test Hemoglobin Carboxyhemoglobin O2 Delivery Device Liter Flow Critical Value Sodium 139 Potassium 5.0 Chloride 108 H Carbon Dioxide 24.4 Anion Gap 7 BUN 17 Creatinine 1.26 Estimated GFR 69 L Random Glucose 88 Calcium 8.9 Magnesium 2.5 Total Bilirubin 0.5 AST 36 ALT 37 Alkaline Phosphatase 124 H Total Creatine Kinase 277 CK-MB (CK-2) 5.9 H Troponin I Less than 0.02 L Total Protein 8.9 H Albumin 3.9 01/28/18 01/29/18 01/29/18 21:10 03:13 03:13 WBC 10.4 RBC 5.83 Hgb 16.0 Hct 48.5 MCV 83.2 MCH 27.5 MCHC 33.0 RDW 14.1 Plt Count 287 MPV 8.1 Prelim Diff (Auto) Neut % (Auto) 94.3 H Lymph % (Auto) 4.9 L [place] % (Auto) 0.6 Eos % (Auto) 0.0 Baso % (Auto) 0.2 Neut # (Auto) 9.8 H Lymph # (Auto) 0.5 L [place] # (Auto) 0.1 Eos # (Auto) 0.0 Baso # (Auto) 0.0 WBC Differential . Diff Scan Differential Comment Auto diff final Platelet Estimate Platelet Morphology RBC Morphology Puncture Site Right radial Patient Temperature 98.6 O2 Saturation 91 ABG pH 7.36 L ABG pCO2 47 H ABG pO2 68 ABG HCO3 26 ABG O2 Content 20.9 H ABG Base Excess 1.0 ABG Methemoglobin 0.7 Roland Test Present Hemoglobin 16.4 H Carboxyhemoglobin 0.9 O2 Delivery Device Nasal cannula Liter Flow 4.00 Critical Value No Sodium 141 Potassium 4.4 Chloride 108 H Carbon Dioxide 26.1 Anion Gap 7 BUN 16 Creatinine 1.10 Estimated GFR 81 L Random Glucose 146 H Calcium 8.7 Magnesium Total Bilirubin 0.6 AST 25 ALT 32 Alkaline Phosphatase 113 Total Creatine Kinase CK-MB (CK-2) Troponin I Total Protein 7.7 D Albumin 3.7 - Imaging Impressions Chest X-Ray 01/28/18 19:20 CONCLUSION: The lungs are clear. Assessment and Plan - Plan //Acute hypercapnic respiratory failure //Acute asthma exacerbation = Improved since yesterday since he was on BiPAP and now he is on nasal cannula , pulmonology following Continue azithromycin and steroids and duo nebs and ICS
[2018-01-29] MEDS ORDERED: ALPRAZolam 0.5 MG Tablet PO ONE (21:28)
--- NOTE | 2018-01-29 22:38 | ECG ---
Date Performed: 01/28/2018 Time Performed: 19:17:38 PTAGE: 67 years EKG: SINUS TACHYCARDIA RIGHT ATRIAL ENLARGEMENT LEFT ATRIAL ENLARGEMENT POSSIBLE LEFT VENTRICULA R HYPERTROPHY ABNORMAL ECG PREVIOUS TRACING : 08/01/2017 10.44 Since the previous tracing, no significant change noted DOCTOR: Sneha Rosenthal Interpretating Date/Time 01/29/2018 22:37:24
[2018-01-30] MEDS: MethylPREDNISolone Sod Succinate Inj 40 MG/ML Vial IV.PUSH SCH ×4 (00:01→18:18)
[2018-01-30] MEDS: Budesonide-Formoterol 160/4.5 MCG 6 GM Inhaler INH SCH ×2 (08:10→21:07)
--- NOTE | 2018-01-30 10:16 | P.PN ---
Subjective Interval history: Nursing denies any deterioration since last night. Patient still is short of breath but does feel a little better since admission. Physical Exam Vital signs: Vital Signs 01/29/18 11:00 01/29/18 12:00 01/29/18 12:56 Temperature 98.0 F Pulse Rate 103 H 100 H 97 H Respiratory Rate 22 Blood Pressure 149/88 H Pulse Oximetry 100 01/29/18 13:32 01/29/18 15:00 01/29/18 15:51 Temperature 98.2 F Pulse Rate 108 H 97 H 102 H Respiratory Rate 20 Blood Pressure 154/87 H Pulse Oximetry 100 01/29/18 16:43 01/29/18 16:48 01/29/18 17:20 Temperature Pulse Rate 106 H 105 H 117 H Respiratory Rate 30 H Blood Pressure Pulse Oximetry 01/29/18 19:00 01/29/18 19:45 01/29/18 19:50 Temperature 98.2 F Pulse Rate 101 H Respiratory Rate 24 Blood Pressure 138/81 Pulse Oximetry 100 100 100 01/29/18 19:51 01/29/18 20:00 01/29/18 21:00 Temperature Pulse Rate 112 H 122 H 106 H Respiratory Rate 40 H Blood Pressure Pulse Oximetry 01/29/18 22:00 01/29/18 23:00 01/30/18 00:00 Temperature 97.7 F Pulse Rate 96 H 105 H 110 H Respiratory Rate 22 Blood Pressure 140/81 Pulse Oximetry 99 01/30/18 01:00 01/30/18 02:00 01/30/18 03:00 Temperature 98.0 F Pulse Rate 90 96 H 74 Respiratory Rate 18 Blood Pressure 132/65 Pulse Oximetry 95 01/30/18 04:00 01/30/18 04:01 01/30/18 05:00 Temperature Pulse Rate 92 H 98 H 88 Respiratory Rate 20 Blood Pressure Pulse Oximetry 01/30/18 05:52 01/30/18 06:00 01/30/18 07:00 Temperature Pulse Rate 104 H 96 H 101 H Respiratory Rate 24 Blood Pressure Pulse Oximetry 01/30/18 08:00 01/30/18 08:25 01/30/18 08:52 Temperature 97.8 F Pulse Rate 76 93 H 72 Respiratory Rate 16 20 Blood Pressure 158/90 H Pulse Oximetry 99 01/30/18 09:33 Temperature Pulse Rate 77 Respiratory Rate Blood Pressure Pulse Oximetry Intake & Output 01/29/18 01/30/18 01/30/18 18:59 06:59 18:59 Intake Total 720 / 720 490 / 490 Output Total 2 / 2 350 / 350 Balance 718 / 718 140 / 140 Weight 58.5 kg Intake: IV 250 / 250 Azithromycin Inj 500 MG In NS 250 / 250 Inj 250 ML @ 250 mls/hr IV.SIG Q24H [facility] Rx#:[id number] Oral 720 / 720 240 / 240 Output: Urine 2 / 2 350 / 350 Other: Date of Last Bowel Movement 01/29/18 # Bowel Movements 1 Narrative: Heart sounds regular rate rhythm, no murmurs Diffuse expiratory wheezing heard with better air movement compared to yesterday Mildly labored breathing, on nasal cannula Results - Labs CBC & Chem 7: 01/29/18 03:13 01/29/18 03:13 Assessment and Plan - Plan //Acute hypercapnic respiratory failure //Acute asthma exacerbation = Continues to show improvement, instructed nursing to wean off oxygen to evaluate saturations on room air Continue frequent dosing of steroids, consider weaning down dose tomorrow, duo nebs Addendum: Nursing reported patient becoming much more labored, on BiPAP now. ABG shows increase in CO2 from 47-61 although there is some compensation. Transferring the patient to ICU per pulmonology's recommendation. 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 Patient did complain of some chest pain today. EKG which I obtained shows sinus tachycardia, no obvious ST segment changes concerning for ischemia or infarction. Troponin yesterday was negative , repeating it now. On azithromycin
[2018-01-30 16:05] LABS: ABG Base Excess 6.4 mmol/L (-2-2); ABG PCO2 61 mmHg (38-42); ABG PO2 159 mmHG (61-120)
--- NOTE | 2018-01-30 16:12 | P.PN ---
Subjective Interval history: RESPIRATORY DISTRESS ON BIPAP Physical Exam Vital signs: Vital Signs 01/29/18 16:43 01/29/18 16:48 01/29/18 17:20 Temperature Pulse Rate 106 H 105 H 117 H Respiratory Rate 30 H Blood Pressure Pulse Oximetry 01/29/18 19:00 01/29/18 19:45 01/29/18 19:50 Temperature 98.2 F Pulse Rate 101 H Respiratory Rate 24 Blood Pressure 138/81 Pulse Oximetry 100 100 100 01/29/18 19:51 01/29/18 20:00 01/29/18 21:00 Temperature Pulse Rate 112 H 122 H 106 H Respiratory Rate 40 H Blood Pressure Pulse Oximetry 01/29/18 22:00 01/29/18 23:00 01/30/18 00:00 Temperature 97.7 F Pulse Rate 96 H 105 H 110 H Respiratory Rate 22 Blood Pressure 140/81 Pulse Oximetry 99 01/30/18 01:00 01/30/18 02:00 01/30/18 03:00 Temperature 98.0 F Pulse Rate 90 96 H 74 Respiratory Rate 18 Blood Pressure 132/65 Pulse Oximetry 95 01/30/18 04:00 01/30/18 04:01 01/30/18 05:00 Temperature Pulse Rate 92 H 98 H 88 Respiratory Rate 20 Blood Pressure Pulse Oximetry 01/30/18 05:52 01/30/18 06:00 01/30/18 07:00 Temperature Pulse Rate 104 H 96 H 101 H Respiratory Rate 24 Blood Pressure Pulse Oximetry 01/30/18 08:00 01/30/18 08:25 01/30/18 08:52 Temperature 97.8 F Pulse Rate 76 93 H 72 Respiratory Rate 16 20 Blood Pressure 158/90 H Pulse Oximetry 99 01/30/18 09:33 01/30/18 10:59 01/30/18 11:00 Temperature Pulse Rate 77 101 H 107 H Respiratory Rate 22 Blood Pressure Pulse Oximetry 99 01/30/18 11:27 01/30/18 12:00 01/30/18 13:00 Temperature 97.9 F Pulse Rate 108 H 114 H Respiratory Rate 24 Blood Pressure 165/82 H Pulse Oximetry 98 98 01/30/18 14:00 01/30/18 14:32 01/30/18 15:38 Temperature Pulse Rate 101 H 106 H 116 H Respiratory Rate 22 Blood Pressure Pulse Oximetry Intake & Output 01/29/18 01/30/18 01/30/18 18:59 06:59 18:59 Intake Total 720 / 720 490 / 490 Output Total 2 / 2 350 / 350 Balance 718 / 718 140 / 140 Weight 58.5 kg Intake: IV 250 / 250 Azithromycin Inj 500 MG In NS 250 / 250 Inj 250 ML @ 250 mls/hr IV.SIG Q24H [facility] Rx#:[id number] Oral 720 / 720 240 / 240 Output: Urine 2 / 2 350 / 350 Other: Date of Last Bowel Movement 01/29/18 # Bowel Movements 1 Narrative: C/O SOB NOW ON BIPAP USING ACCESSORY MUSCLES Heart sounds regular rate rhythm, no murmurs Diffuse expiratory wheezing heard with better air movement compared to yesterday Mildly labored breathing, on nasal cannula Results - Labs CBC & Chem 7: 01/29/18 03:13 01/29/18 03:13 Laboratory Results - last 24 hr 01/30/18 15:54 Puncture Site Left radial Patient Temperature 98.6 O2 Saturation 97 ABG pH 7.34 L ABG pCO2 61 H* ABG pO2 159 H ABG HCO3 32 H ABG O2 Content 23.6 H ABG Base Excess 6.4 H ABG Methemoglobin 1.6 Roland Test Present Hemoglobin 17.1 H Carboxyhemoglobin 0.3 O2 Delivery Device Bipap Vent Setting Ipap12/[id number] Inspired O2 40 Critical Value Yes Assessment and Plan - Plan COPD WXACERBATION RESP FAILURE PLAN TRANSFER TO [facility] [place]
--- NOTE | 2018-01-30 16:15 | XR ---
EXAM DATE: 01/30/2018 12:00 AM EDT AGE/SEX: 67 years / Male INDICATIONS: Shortness of breath. CLINICAL DATA: This is the patient's subsequent encounter. Patient reports that signs and symptoms h ave been present for 3 days and indicates a pain score of 0/10. MEDICAL/SURGICAL HISTORY: Asthma. None. COMPARISON: C, CHEST 1V SINGLE AP, 01/28/2018. . FINDINGS: Lungs are hyperinflated. There is no evidence of acute airspace disease or congestion. Heart and mediastinal structures are within normal limits in appearance. Osseous structures are intact. CONCLUSION: Hyperinflated lungs characteristic of COPD No evidence of acute process. Electronically signed by: Lambert Hair MD 01/30/2018 4:14 PM EDT
[2018-01-30] MEDS ORDERED: Dextrose 50% in Water 50 ML Vial IV.PUSH PRN (16:49)
[2018-01-30] MEDS ORDERED: Magnesium Oxide 400 MG Tablet PO PRN (17:10)
[2018-01-30] MEDS ORDERED: Potassium Phosphate 500 MG Soluble Tablet PO PRN ×2 (17:10)
[2018-01-30] MEDS ORDERED: Magnesium Sulfate Inj 2 GM in Sodium Chlor 0.9% Inj 96 ML IV.SIG PRN (17:10)
[2018-01-30] MEDS ORDERED: Potassium Chlor 20 mEq Premix 20 MEQ/100 ML PIGGYBACK IV.SIG PRN ×2 (17:10)
[2018-01-30] MEDS ORDERED: Potassium Phosphate Inj 30 MMOL in Sodium Chlor 0.9% Inj 250 ML IV.SIG PRN (17:10)
[2018-01-30] MEDS ORDERED: Potassium Chloride 25 MEQ Effervescent Tablet PO PRN (17:10)
[2018-01-30] MEDS ORDERED: Sodium Phosphate Inj 30 MMOL in Sodium Chlor 0.9% Inj 250 ML IV.SIG PRN (17:10)
[2018-01-30] MEDS ORDERED: Magnesium Sulfate Inj 4 GM in Sodium Chlor 0.9% Inj 92 ML IV.SIG PRN (17:10)
[2018-01-30] MEDS ORDERED: Potassium Chlor 40 mEq Premix 40 MEQ/100 ML PIGGYBACK IV.SIG PRN ×2 (17:10)
[2018-01-30] MEDS: dilTIAZem 60 MG Tablet PO SCH ×2 (17:27→20:12)
[2018-01-30] MEDS: Sod Chloride 0.9% Inj 1,000 ML IV.CONT SCH (18:17)
[2018-01-30] MEDS: Pantoprazole Inj 40 MG Vial IV.PUSH SCH (18:17)
[2018-01-30] MEDS: Insulin NovoLIN Regular Correctional Sugar Inj SQ SCH ×2 (18:23→23:47)
[2018-01-30 19:03] LABS: ABG Base Excess 6.6 mmol/L (-2-2); ABG PCO2 56 mmHg (38-42); ABG PO2 131 mmHG (61-120)
--- NOTE | 2018-01-30 19:26 | MB ---
cc: Jesica Whitman MD DATE: 01/30/2018 HISTORY OF PRESENT ILLNESS: The patient is a 67-year-old male with a past medical history of bronchial asthma, questionable COPD, history of tobacco use, who presented to [facility] on 01/28/2018 for progressive worsening shortness of breath associated with a productive cough. He was admitted under the hospitalist service for a COPD exacerbation and was started on bronchodilators, steroids and antibiotics. The patient had a blood gas on arrival on 4 liters oxygen which showed a pH of 7.36, CO2 of 47, PaO2 of 68, bicarbonate of 26 and sat of 91%. He was seen by Dr. Mckeon from the pulmonary service. This afternoon, the patient became short of breath and was subsequently placed on BiPAP 12/5 with 40% and ABG on the BiPAP showed mild worsening of respiratory acidosis with a pH of 7.34, CO2 of 61, PaO2 of 159, bicarbonate of 32 with a saturation of 97%. [place] [facility] [place] and critical care medicine was consulted for critical care management. A chest x-ray from earlier today showed hyperinflated lungs characteristic of COPD, otherwise no evidence of acute process. When seen, the patient is tachypneic, tachycardic with heart rate of 114 and hypertensive with a blood pressure 176/109. He remains on BiPAP. The patient quit smoking 15 years ago. He denies any nausea, vomiting or abdominal pain. In addition, he denies any orthopnea, PND or edema of the lower extremities. He had chest discomfort earlier today; however, his troponin is less than 0.02 x 2 sets. PAST MEDICAL HISTORY: Significant for bronchial asthma. He denies any prior history of hypertension, diabetes, coronary artery disease. PAST SURGICAL HISTORY: Previous cardiac catheterization and previous back surgery. ALLERGIES: NO KNOWN DRUG ALLERGIES. FAMILY HISTORY: Diabetes mellitus and bronchial asthma run in the family. SOCIAL HISTORY: Ex-smoker, social drinker. CURRENT MEDICATIONS: 1. DuoNeb. 2. Azithromycin. 3. Symbicort. 4. Solu-Medrol. REVIEW OF SYSTEMS: As per HPI. The rest of review of systems is unremarkable. PHYSICAL EXAMINATION: GENERAL: A 67-year-old male lying in bed, in mild to moderate respiratory distress. VITAL SIGNS: Temperature 98.1, pulse 114, respiratory rate 32, blood pressure 176/109, saturation 99% to 100% on BiPAP. HEENT: Atraumatic, normocephalic. Pupils equal, round, reactive to light and accommodation. Extraocular muscles intact. Conjunctivae pink. Nonicteric sclerae. Oral mucosa within normal. NECK: Supple. No JVD, adenopathy or thyromegaly. Trachea in the midline. CARDIOVASCULAR: Tachycardic. Normal S1, S2. No murmurs, rubs or gallops noted. PULMONARY: Bilateral equal air entry. Diminished breath sounds. No wheezing or crackles. ABDOMEN: Soft, nontender. No distention. Positive bowel sounds. EXTREMITIES: No cyanosis, clubbing or edema. NEUROLOGIC: No focal sensory deficits. LABORATORY DATA: Sodium 141, potassium 4.4, chloride 108, CO2 of 26, BUN 16, creatinine 1.1, glucose 146. Troponin less than 0.02 x 2. WBC 10.4, hemoglobin 16, hematocrit 48, platelet count 287. Blood gas, pH of 7.34, CO2 of 61, PaO2 of 159, bicarbonate of 32, sats 97%. A chest x-ray showed hyperinflated lungs with COPD changes, no acute process noted. IMPRESSION: 1. Acute hypercapnic hypoxemic respiratory failure. 2. Chronic obstructive pulmonary disease exacerbation. 3. Hypertension. 4. History of tobacco abuse. 5. History of bronchial asthma. 6. Leukocytosis, trending down. 7. Mild hyperglycemia. RECOMMENDATIONS: 1. Monitor neuro status closely and avoid any sedatives. 2. Continue oxygen to maintain sats above 92%. 3. Bronchodilators in the form of DuoNeb q.4 plus q.2 p.r.n. for shortness of breath and continue with Symbicort 160/4.5 two puffs b.i.d. 4. Continue with IV steroids. He is currently on Solu-Medrol 60 mg IV q.6. 5. Continue with BiPAP and we will repeat an ABG in 1 hour. If there are any changes in respiratory status, we will proceed with intubation and mechanical ventilation. 6. Dr. Mckeon from the pulmonary service is following. 7. Place on Cardizem 60 mg q.6 for blood pressure and heart rate control. Monitor heart rate and blood pressure closely and maintain a MAP greater than 65 mmHg. Troponin is less than 0.02 x 2 sets. 8. Monitor renal function, I's and O's and electrolyte replacement per protocol. Place on NS at 75 mL an hour. 9. Keep n.p.o. for now and place on Protonix 40 mg daily for GI prophylaxis. 10. Continue with empiric antibiotics in the form of azithromycin and monitor for signs of infection, which include fever and WBC. 11. Monitor CBC. 12. Place on sliding scale insulin with Accu-Cheks for glycemic control as the patient is on intravenous steroids. 13. We will place on Protonix 40 mg daily for GI prophylaxis and heparin subcutaneous for DVT prophylaxis. 14. Further recommendations will be based on hospital course. MD ALEKSANDR Grigsby/jennifer , 05:08 PM , 05:21 PM
[2018-01-30] MEDS: Heparin - SQ 10,000 UNITS/ML Vial SQ SCH (20:13)
[2018-01-30] MEDS: Azithromycin Inj 500 MG in Sodium Chlor 0.9% Inj 250 ML IV.SIG SCH (23:40)
[2018-01-31] MEDS: MethylPREDNISolone Sod Succinate Inj 40 MG/ML Vial IV.PUSH SCH ×4 (01:39→18:02)
[2018-01-31 04:58] LABS: Baso # (Auto) 0.1 th/mm3 (0.0-0.2); Baso % (Auto) 0.6 % (0.0-2.0); Hematocrit 49.6 % (39.0-51.0); Hemoglobin 15.6 gm/dL (13.0-17.0); Lymph # (Auto) 0.7 th/mm3 (1.0-4.8); Lymph % (Auto) 2.9 % (9.0-44.0); Mean Corpuscular HGB Conc 31.4 % (32.0-36.0); Mean Corpuscular Hemoglobin 26.8 pg (27.0-34.0); Mean Corpuscular Volume 85.4 fL (80.0-100.0); Mean Platelet Volume 8.5 fL (7.0-11.0); Mono # (Auto) 0.8 th/mm3 (0.0-0.9); Mono % (Auto) 3.4 % (0.0-8.0); Neut % (Auto) 93.1 % (16.0-70.0); Platelet Count 301 th/mm3 (150-450); Red Cell Distribution Width 14.4 % (11.6-17.2); White Blood Count 23.6 th/mm3 (4.0-11.0)
[2018-01-31] MEDS: Insulin NovoLIN Regular Correctional Sugar Inj SQ SCH ×4 (06:28→23:54)
--- NOTE | 2018-01-31 06:35 | ECG ---
Date Performed: 01/30/2018 Time Performed: 16:00:24 PTAGE: 67 years EKG: Sinus tachycardia. Possible left atrial abnormality ST junctional depression is nonspecific Borderline ECG No significant change from prior electrocardiogram. PREVIOUS TRACING : 01/28/2018 19.17 DOCTOR: Abdirahman Beckham Interpretating Date/Time 01/31/2018 06:34:55
--- NOTE | 2018-01-31 07:24 | P.PNCC ---
Subjective Subjective Remarks/Hospital Course: The patient is a 67-year-old male with a past medical history of bronchial asthma, questionable COPD, history of tobacco use, who presented to [facility] on 01/28/2018 for progressive worsening shortness of breath associated with a productive cough. He was admitted under the hospitalist service for a COPD exacerbation andwas started on bronchodilators, steroids and antibiotics. The patient had a blood gas on arrival on 4 liters oxygen which showed a pH of 7.36, CO2 of 47, PaO2 of 68, bicarbonate of 26 and sat of 91%. He was seen by Dr. Mckeon from the pulmonary service. This afternoon, the patient became short of breath and was subsequently placed on BiPAP 12/5 with 40% and ABG on the BiPAP showed mild worsening of respiratory acidosis with a pH of 7.34, CO2 of 61 , PaO2 of 159, bicarbonate of 32 with a saturation of 97%. [place] [facility] [place] and critical care medicine was consulted for critical care management. A chest x-ray from earlier today showed hyperinflated lungs characteristic of COPD, otherwise no evidence of acute process. When seen, the patient is tachypneic, tachycardic with heart rate of 114 and hypertensive with a blood pressure 176/109. He remains on BiPAP. The patient quit smoking 15 years ago. He denies any nausea, vomiting or abdominal pain. In addition, he denies any orthopnea, PND or edema of the lower extremities. He had chest discomfort earlier today; however, his troponin is less than 0.02 x 2 sets. 01/31 No events overnight. Awake and alert. repeat ABG last night showed improvement in his resp acidosis, off BIPAP. Objective Vital Signs / I&O: Vital Signs 01/30/18 08:00 01/30/18 08:25 01/30/18 08:52 Temperature 97.8 F Pulse Rate 76 93 H 72 Respiratory Rate 16 20 Blood Pressure 158/90 H Pulse Oximetry 99 01/30/18 09:33 01/30/18 10:59 01/30/18 11:00 Temperature Pulse Rate 77 101 H 107 H Respiratory Rate 22 Blood Pressure Pulse Oximetry 99 01/30/18 11:27 01/30/18 12:00 01/30/18 13:00 Temperature 97.9 F Pulse Rate 108 H 114 H Respiratory Rate 24 Blood Pressure 165/82 H Pulse Oximetry 98 98 01/30/18 14:00 01/30/18 14:32 01/30/18 15:38 Temperature Pulse Rate 101 H 106 H 116 H Respiratory Rate 22 Blood Pressure Pulse Oximetry 01/30/18 16:00 01/30/18 16:42 01/30/18 17:00 Temperature 98.1 F Pulse Rate 114 H 108 H Respiratory Rate 32 H Blood Pressure 176/109 H Pulse Oximetry 100 99 01/30/18 18:00 01/30/18 19:36 01/30/18 20:00 Temperature 97.8 F Pulse Rate 100 H 93 H 93 H Respiratory Rate 34 H 29 H Blood Pressure 167/82 H Pulse Oximetry 97 99 01/30/18 22:00 01/30/18 22:20 01/30/18 23:16 Temperature Pulse Rate 90 91 H Respiratory Rate 26 H Blood Pressure Pulse Oximetry 97 01/31/18 00:00 01/31/18 01:10 01/31/18 02:00 Temperature 97.6 F Pulse Rate 82 82 Respiratory Rate 34 H Blood Pressure 146/76 H Pulse Oximetry 99 100 01/31/18 03:44 01/31/18 04:00 01/31/18 04:18 Temperature 97.8 F Pulse Rate 90 98 H Respiratory Rate 24 36 H Blood Pressure 162/69 H Pulse Oximetry 100 97 01/31/18 06:00 Temperature Pulse Rate 67 Respiratory Rate Blood Pressure Pulse Oximetry Intake & Output 01/30/18 01/31/18 01/31/18 18:59 06:59 18:59 Intake Total 350 / 350 Output Total 0 / 0 550 / 550 Balance 0 / 0 -200 / -200 Weight 59 kg Intake: IV 250 / 250 Azithromycin Inj 500 MG In NS 250 / 250 Inj 250 ML @ 250 mls/hr IV.SIG Q24H [facility] Rx#:[id number] Oral 100 / 100 Output: Urine 0 / 0 550 / 550 Other: Date of Last Bowel Movement 01/29/18 01/29/18 # Bowel Movements 0 Result Diagrams: 01/31/18 07:00 01/31/18 07:00 Other Results: Laboratory Results - last 12 hr 01/30/18 01/31/18 01/31/18 23:47 04:06 06:26 WBC 23.6 H RBC 5.80 Hgb 15.6 Hct 49.6 MCV 85.4 MCH 26.8 L MCHC 31.4 L RDW 14.4 Plt Count 301 MPV 8.5 Neut % (Auto) 93.1 H Lymph % (Auto) 2.9 L Carlton % (Auto) 3.4 Eos % (Auto) 0.0 Baso % (Auto) 0.6 Neut # (Auto) 22.0 H Lymph # (Auto) 0.7 L Carlton # (Auto) 0.8 Eos # (Auto) 0.0 Baso # (Auto) 0.1 WBC Differential . Differential Comment Auto diff final POC Glucose 125 H 118 H Imaging: Chest X-Ray 01/30/18 00:00 CONCLUSION: Hyperinflated lungs characteristic of COPD No evidence of acute process. Objective Remarks: GENERAL: Patient is 67 yo lying in bed in NAD SKIN: Warm and dry. HEAD: Normocephalic. EYES: No scleral icterus. No injection or drainage. NECK: Supple, trachea midline. No JVD or lymphadenopathy. CARDIOVASCULAR: Regular rate and rhythm without murmurs, gallops, or rubs. RESPIRATORY: Breath sounds equal bilaterally. No accessory muscle use. GASTROINTESTINAL: Abdomen soft, non-tender, nondistended. MUSCULOSKELETAL: No cyanosis, or edema. Neuro: Awake and alert Assessment and Plan - Assessment and Plan Plan: IMPRESSION: 1. Acute hypercapnic hypoxemic respiratory failure. 2. Chronic obstructive pulmonary disease exacerbation. 3. Hypertension. 4. History of tobacco abuse. 5. History of bronchial asthma. 6. Leukocytosis 7. Mild hyperglycemia. Plan Neuro: Monitor neuro status closely and avoid any sedatives. Pulm: Continue oxygen to maintain sats above 92%. Bronchodilators(DuoNeb, Symbicort) Solu-Medrol 60 mg IV q.6. BIPAP PRN for resp distress Pulm is following- Dr. Mckeon CV: On Cardizem 60 mg q.6 Monitor HR and BP keep MAP>65mmHg Troponin < 0.02 x 2 sets. : Monitor renal function, I's and O's and electrolyte replacement per protocol. on NS at 75 mL an hour. GI: on Protonix 40 mg daily for GI prophylaxis. On PO diet ID: Continue azithromycin add Zosyn and monitor for signs of infection(fever and WBC). Heme: Monitor CBC. Endo: SSI with Accu-Cheks for glycemic control GI prophylaxis- on Protonix 40 mg daily DVT prophylaxis- on heparin subcutaneous Will sign off and transfer care to [facility] Level 2
[2018-01-31 07:40] LABS: Baso % (Auto) 0.1 % (0.0-2.0); Hematocrit 47.6 % (39.0-51.0); Hemoglobin 14.9 gm/dL (13.0-17.0); Lymph # (Auto) 0.5 th/mm3 (1.0-4.8); Lymph % (Auto) 2.2 % (9.0-44.0); Mean Corpuscular HGB Conc 31.4 % (32.0-36.0); Mean Corpuscular Hemoglobin 26.6 pg (27.0-34.0); Mean Platelet Volume 8.7 fL (7.0-11.0); Mono # (Auto) 0.6 th/mm3 (0.0-0.9); Mono % (Auto) 2.7 % (0.0-8.0); Neut # (Auto) 20.8 th/mm3 (1.8-7.7); Platelet Count 259 th/mm3 (150-450); Red Cell Distribution Width 14.2 % (11.6-17.2); White Blood Count 21.9 th/mm3 (4.0-11.0)
[2018-01-31 08:00] LABS: Alanine Aminotransferase 40 U/L (12-78); Albumin 3.3 g/dL (3.4-5.0); Anion Gap 8 meq/L (5-15); Aspartate Aminotransferase 29 U/L (15-37); Blood Urea Nitrogen 22 mg/dL (7-18); Calcium 8.8 mg/dL (8.5-10.1); Chloride 103 meq/L (98-107); Glomerular Filtration Rate Greater Than 89 mL/min (>89); Glucose,Random 133 mg/dL (74-106); Magnesium 2.6 mg/dL (1.5-2.5); Phosphorus 3.4 mg/dL (2.5-4.9); Potassium 4.7 meq/L (3.5-5.1); Sodium 142 meq/L (136-145)
[2018-01-31 08:03] LABS: Alkaline Phosphatase 102 U/L (45-117); Total Protein 7.2 g/dL (6.4-8.2)
[2018-01-31 08:13] LABS: Amphetamine Screen,Urine Neg (Neg); Barbiturate Screen,Urine Neg (Neg); Cannabinoid Screen,Urine Neg (Neg); Cocaine Screen,Urine Neg (Neg)
[2018-01-31 08:35] LABS: Opiate Screen,Urine Neg (Neg)
[2018-01-31] MEDS: Heparin - SQ 10,000 UNITS/ML Vial SQ SCH ×2 (08:40→20:32)
[2018-01-31] MEDS: Sod Chloride 0.9% Inj 1,000 ML IV.CONT SCH ×2 (08:40→23:45)
[2018-01-31] MEDS: dilTIAZem 60 MG Tablet PO SCH ×4 (08:40→20:33)
[2018-01-31] MEDS: Budesonide-Formoterol 160/4.5 MCG 6 GM Inhaler INH SCH ×2 (08:43→20:33)
[2018-01-31 09:17] LABS: Bilirubin,Urine Negative (Negative); Clarity,Urine Hazy (Clear); Color,Urine Yellow (Yellw/Straw); Glucose,Urine (UA) Negative (Negative); Leukocyte Esterase,Urine Negative (Negative); Mucus,Urine Few /lpf (Occasional); Nitrite,Urine Negative (Negative); Specific Gravity,Urine 1.021 (1.002-1.035); Squamous Epithelial Cell,Urine <1 /hpf (0-5)
[2018-01-31] MEDS: Piperacil/Tazo 4.5 GM Premix 4.5 GM/100 ML BAG IV.SIG SCH ×3 (09:27→20:33)
--- NOTE | 2018-01-31 14:25 | P.PNPL ---
Subjective Interval history: 67 YOAA male with COPD exac, hypercapnoic RF On BIPAP Feels better Alert, awake, follows commands No Fever Physical Exam Vital signs: Vital Signs 01/30/18 14:32 01/30/18 15:38 01/30/18 16:00 Temperature 98.1 F Pulse Rate 106 H 116 H 114 H Respiratory Rate 22 32 H Blood Pressure 176/109 H Pulse Oximetry 100 01/30/18 16:42 01/30/18 17:00 01/30/18 18:00 Temperature Pulse Rate 108 H 100 H Respiratory Rate Blood Pressure Pulse Oximetry 99 01/30/18 19:36 01/30/18 20:00 01/30/18 22:00 Temperature 97.8 F Pulse Rate 93 H 93 H 90 Respiratory Rate 34 H 29 H Blood Pressure 167/82 H Pulse Oximetry 97 99 01/30/18 22:20 01/30/18 23:16 01/31/18 00:00 Temperature 97.6 F Pulse Rate 91 H 82 Respiratory Rate 26 H 34 H Blood Pressure 146/76 H Pulse Oximetry 97 99 01/31/18 01:10 01/31/18 02:00 01/31/18 03:44 Temperature Pulse Rate 82 90 Respiratory Rate 24 Blood Pressure Pulse Oximetry 100 01/31/18 04:00 01/31/18 04:18 01/31/18 06:00 Temperature 97.8 F Pulse Rate 98 H 67 Respiratory Rate 36 H Blood Pressure 162/69 H Pulse Oximetry 100 97 01/31/18 07:49 01/31/18 07:50 01/31/18 08:00 Temperature 97.6 F Pulse Rate 96 H 89 Respiratory Rate 18 34 H Blood Pressure 142/78 H Pulse Oximetry 96 100 01/31/18 10:00 01/31/18 11:49 01/31/18 12:00 Temperature 97.7 F Pulse Rate 84 79 74 Respiratory Rate 18 29 H Blood Pressure 134/70 Pulse Oximetry 97 01/31/18 14:00 Temperature Pulse Rate 80 Respiratory Rate Blood Pressure Pulse Oximetry Intake & Output 01/30/18 01/31/18 01/31/18 18:59 06:59 18:59 Intake Total 350 / 350 1100 / 1100 Output Total 0 / 0 550 / 550 Balance 0 / 0 -200 / -200 1100 / 1100 Weight 59 kg Intake: IV 250 / 250 1100 / 1100 NS Inj 1,000 ML @ 75 mls/hr IV. 1000 / 1000 CONT .[id number] [facility] Rx#:[id number] Azithromycin Inj 500 MG In NS 250 / 250 Inj 250 ML @ 250 mls/hr IV.SIG Q24H [facility] Rx#:[id number] Zosyn 4.5 GM Premix 4.5 gm In 100 / 100 100 ml @ 200 mls/hr IV.SIG Q6H [facility] Rx#:[id number] Oral 100 / 100 Output: Urine 0 / 0 550 / 550 Other: Date of Last Bowel Movement 01/29/18 01/29/18 01/29/18 # Bowel Movements 0 GENERAL: Elderly AA male, mild sob SKIN: Warm and dry. HEAD: Normocephalic. EYES: No scleral icterus. No injection or drainage. NECK: Supple, trachea midline. No JVD or lymphadenopathy. CARDIOVASCULAR: Regular rate and rhythm without murmurs, gallops, or rubs. RESPIRATORY: Breath sounds equal bilaterally. No accessory muscle use. GASTROINTESTINAL: Abdomen soft, non-tender, nondistended. MUSCULOSKELETAL: No cyanosis, or edema. BACK: Nontender without obvious deformity. No CVA tenderness. Assessment and Plan - Plan IMPRESSION: Hypercapnoic RF COPD Exac HTN Leucocytosis PLAN: Cont BIPAP IV Solumedrol Aerosol nebs cont Abx SQ heparib
--- NOTE | 2018-01-31 16:44 | P.PN ---
Subjective Interval history: Patient doing well overnight but became SOB when he tried to be more active, on Bipap during visit. Patient denies CP, tolerating PO and voiding/stooling well. Physical Exam Vital signs: Vital Signs 01/30/18 17:00 01/30/18 18:00 01/30/18 19:36 Temperature Pulse Rate 108 H 100 H 93 H Respiratory Rate 34 H Blood Pressure Pulse Oximetry 97 01/30/18 20:00 01/30/18 22:00 01/30/18 22:20 Temperature 97.8 F Pulse Rate 93 H 90 Respiratory Rate 29 H Blood Pressure 167/82 H Pulse Oximetry 99 97 01/30/18 23:16 01/31/18 00:00 01/31/18 01:10 Temperature 97.6 F Pulse Rate 91 H 82 Respiratory Rate 26 H 34 H Blood Pressure 146/76 H Pulse Oximetry 99 100 01/31/18 02:00 01/31/18 03:44 01/31/18 04:00 Temperature 97.8 F Pulse Rate 82 90 98 H Respiratory Rate 24 36 H Blood Pressure 162/69 H Pulse Oximetry 100 01/31/18 04:18 01/31/18 06:00 01/31/18 07:49 Temperature Pulse Rate 67 96 H Respiratory Rate 18 Blood Pressure Pulse Oximetry 97 01/31/18 07:50 01/31/18 08:00 01/31/18 10:00 Temperature 97.6 F Pulse Rate 89 84 Respiratory Rate 34 H Blood Pressure 142/78 H Pulse Oximetry 96 100 01/31/18 11:49 01/31/18 12:00 01/31/18 14:00 Temperature 97.7 F Pulse Rate 79 74 80 Respiratory Rate 18 29 H Blood Pressure 134/70 Pulse Oximetry 97 01/31/18 15:00 01/31/18 16:00 Temperature 97.9 F Pulse Rate 74 80 Respiratory Rate 18 32 H Blood Pressure 146/72 H Pulse Oximetry 100 Intake & Output 01/30/18 01/31/18 01/31/18 18:59 06:59 18:59 Intake Total 350 / 350 1200 / 1200 Output Total 0 / 0 550 / 550 Balance 0 / 0 -200 / -200 1200 / 1200 Weight 59 kg Intake: IV 250 / 250 1200 / 1200 NS Inj 1,000 ML @ 75 mls/hr IV. 1000 / 1000 CONT .[id number] ANTONI Rx#:[id number] Azithromycin Inj 500 MG In NS 250 / 250 Inj 250 ML @ 250 mls/hr IV.SIG Q24H ANTONI Rx#:[id number] Zosyn 4.5 GM Premix 4.5 gm In 200 / 200 100 ml @ 200 mls/hr IV.SIG Q6H ANTONI Rx#:[id number] Oral 100 / 100 Output: Urine 0 / 0 550 / 550 Other: Date of Last Bowel Movement 01/29/18 01/29/18 01/29/18 # Bowel Movements 0 Narrative: GENERAL: well nourished AAM, in mild respiratory distress, Bipap on SKIN: Warm and dry. HEAD: Normocephalic. EYES: No scleral icterus. No injection or drainage. NECK: Supple, trachea midline. No JVD or lymphadenopathy. CARDIOVASCULAR: Regular rate and rhythm without murmurs, gallops, or rubs. RESPIRATORY: Diffuse exp. wheezing. No accessory muscle use. GASTROINTESTINAL: Abdomen soft, non-tender, nondistended. MUSCULOSKELETAL: No cyanosis, or edema. BACK: Nontender without obvious deformity. No CVA tenderness. NEURO: AAOx3 Results - Labs CBC & Chem 7: 01/31/18 07:00 01/31/18 07:00 Laboratory Results - last 24 hr 01/30/18 01/30/18 01/30/18 18:14 18:57 23:47 WBC RBC Hgb Hct MCV MCH MCHC RDW Plt Count MPV Neut % (Auto) Lymph % (Auto) [place] % (Auto) Eos % (Auto) Baso % (Auto) Neut # (Auto) Lymph # (Auto) [place] # (Auto) Eos # (Auto) Baso # (Auto) WBC Differential Differential Comment Puncture Site Right radial Patient Temperature 98.6 O2 Saturation 97 ABG pH 7.37 L ABG pCO2 56 H* ABG pO2 131 H ABG HCO3 32 H ABG O2 Content 22.5 H ABG Base Excess 6.6 H ABG Methemoglobin 1.5 Roland Test Present Hemoglobin 16.5 H Carboxyhemoglobin 0.3 O2 Delivery Device Bipap Vent Setting [id number] Inspired O2 40 Critical Value Yes Sodium Potassium Chloride Carbon Dioxide Anion Gap BUN Creatinine Estimated GFR POC Glucose 106 125 H Random Glucose Calcium Phosphorus Magnesium Total Bilirubin AST ALT Alkaline Phosphatase Total Protein Albumin Urine Color Urine Clarity Urine pH Ur Specific [place] Urine Protein Urine Glucose (UA) Urine Ketones Urine Occult Blood Urine Nitrate Urine Bilirubin Urine Urobilinogen Ur Leukocyte Esterase Urine RBC Urine WBC Ur Squamous Epith Cells Urine Mucus Micro UA Comment Ur Microscopic Review Urine Culture Comments Urine Opiates Screen Ur Barbiturates Screen Ur Amphetamines Screen U Benzodiazepines Scrn Urine Cocaine Screen U Cannabinoids Screen 01/31/18 01/31/18 01/31/18 04:06 06:26 07:00 WBC 23.6 H 21.9 H RBC 5.80 5.60 Hgb 15.6 14.9 Hct 49.6 47.6 MCV 85.4 85.0 MCH 26.8 L 26.6 L MCHC 31.4 L 31.4 L RDW 14.4 14.2 Plt Count 301 259 MPV 8.5 8.7 Neut % (Auto) 93.1 H 95.0 H Lymph % (Auto) 2.9 L 2.2 L [place] % (Auto) 3.4 2.7 Eos % (Auto) 0.0 0.0 Baso % (Auto) 0.6 0.1 Neut # (Auto) 22.0 H 20.8 H Lymph # (Auto) 0.7 L 0.5 L [place] # (Auto) 0.8 0.6 Eos # (Auto) 0.0 0.0 Baso # (Auto) 0.1 0.0 WBC Differential . . Differential Comment Auto diff final Auto diff final Puncture Site Patient Temperature O2 Saturation ABG pH ABG pCO2 ABG pO2 ABG HCO3 ABG O2 Content ABG Base Excess ABG Methemoglobin Roland Test Hemoglobin Carboxyhemoglobin O2 Delivery Device Vent Setting Inspired O2 Critical Value Sodium Potassium Chloride Carbon Dioxide Anion Gap BUN Creatinine Estimated GFR POC Glucose 118 H Random Glucose Calcium Phosphorus Magnesium Total Bilirubin AST ALT Alkaline Phosphatase Total Protein Albumin Urine Color Urine Clarity Urine pH Ur Specific [place] Urine Protein Urine Glucose (UA) Urine Ketones Urine Occult Blood Urine Nitrate Urine Bilirubin Urine Urobilinogen Ur Leukocyte Esterase Urine RBC Urine WBC Ur Squamous Epith Cells Urine Mucus Micro UA Comment Ur Microscopic Review Urine Culture Comments Urine Opiates Screen Ur Barbiturates Screen Ur Amphetamines Screen U Benzodiazepines Scrn Urine Cocaine Screen U Cannabinoids Screen 01/31/18 01/31/18 01/31/18 07:00 07:25 07:25 WBC RBC Hgb Hct MCV MCH MCHC RDW Plt Count MPV Neut % (Auto) Lymph % (Auto) [place] % (Auto) Eos % (Auto) Baso % (Auto) Neut # (Auto) Lymph # (Auto) [place] # (Auto) Eos # (Auto) Baso # (Auto) WBC Differential Differential Comment Puncture Site Patient Temperature O2 Saturation ABG pH ABG pCO2 ABG pO2 ABG HCO3 ABG O2 Content ABG Base Excess ABG Methemoglobin Roland Test Hemoglobin Carboxyhemoglobin O2 Delivery Device Vent Setting Inspired O2 Critical Value Sodium 142 Potassium 4.7 Chloride 103 Carbon Dioxide 31.0 Anion Gap 8 BUN 22 H Creatinine 1.00 Estimated GFR Greater than 89 POC Glucose Random Glucose 133 H Calcium 8.8 Phosphorus 3.4 Magnesium 2.6 H Total Bilirubin 0.7 AST 29 ALT 40 Alkaline Phosphatase 102 Total Protein 7.2 Albumin 3.3 L Urine Color Yellow Urine Clarity Hazy H Urine pH 5.0 Ur Specific [place] 1.021 Urine Protein 30 H Urine Glucose (UA) Negative Urine Ketones Negative Urine Occult Blood Negative Urine Nitrate Negative Urine Bilirubin Negative Urine Urobilinogen Less than 2 Ur Leukocyte Esterase Negative Urine RBC 1 Urine WBC 2 Ur Squamous Epith Cells <1 Urine Mucus Few H Micro UA Comment Culture not ind Ur Microscopic Review Not Reportable Urine Culture Comments Culture not ind Urine Opiates Screen Neg Ur Barbiturates Screen Neg Ur Amphetamines Screen Neg U Benzodiazepines Scrn Neg Urine Cocaine Screen Neg U Cannabinoids Screen Neg 01/31/18 11:57 WBC RBC Hgb Hct MCV MCH MCHC RDW Plt Count MPV Neut % (Auto) Lymph % (Auto) [place] % (Auto) Eos % (Auto) Baso % (Auto) Neut # (Auto) Lymph # (Auto) [place] # (Auto) Eos # (Auto) Baso # (Auto) WBC Differential Differential Comment Puncture Site Patient Temperature O2 Saturation ABG pH ABG pCO2 ABG pO2 ABG HCO3 ABG O2 Content ABG Base Excess ABG Methemoglobin Roland Test Hemoglobin Carboxyhemoglobin O2 Delivery Device Vent Setting Inspired O2 Critical Value Sodium Potassium Chloride Carbon Dioxide Anion Gap BUN Creatinine Estimated GFR POC Glucose 168 H Random Glucose Calcium Phosphorus Magnesium Total Bilirubin AST ALT Alkaline Phosphatase Total Protein Albumin Urine Color Urine Clarity Urine pH Ur Specific [place] Urine Protein Urine Glucose (UA) Urine Ketones Urine Occult Blood Urine Nitrate Urine Bilirubin Urine Urobilinogen Ur Leukocyte Esterase Urine RBC Urine WBC Ur Squamous Epith Cells Urine Mucus Micro UA Comment Ur Microscopic Review Urine Culture Comments Urine Opiates Screen Ur Barbiturates Screen Ur Amphetamines Screen U Benzodiazepines Scrn Urine Cocaine Screen U Cannabinoids Screen Assessment and Plan - Assessment (1) Hypertension Code(s): I10 - Essential (primary) hypertension Status: Chronic (2) Asthma exacerbation Code(s): J45.901 - Unspecified asthma with (acute) exacerbation Status: Acute - Plan This is a 67-year-old AAM with past medical history of Asthma, ?COPD, Smoker admitted on 01/30 for worsening shortness of breath with productive cough. Patient was admitted for COPD exacerbation and due to need for Bipap was transferred to the ICU, patient now on NC but at times uses the Bipap for symptomatic SOB depite adequate saturation, HD#4 1. COPD Exacerbation with Hypercapnic Respiratory Failure Managed by Pulm, appreciate assistance Cont. NC and BIPAP if needed, can transfer to floor once weaned off of Bipap Cont. IV Solumedrol, Duonebs Q4 scheduled and Albuterol PRN Cont. Symbicort Cont. Azithromycin started 01/29 and Zosyn started 01/31 2. HTN On Cardizem 60mg QID BP stable Cont. to monitor 3. Leukocytosis WBC 21.9 from 23.6 Likely secondary to steroid Cont. to monitor 4. Hyperglycemia Secondary to steroid Cont. SSI Checking HgbA1c 5. GI PPX: Cont. PPI 6. DVT prophylaxis- Heparin 7. Dispo: wean off Bipap, transfer to floor in AM if stable on NC Code Status: full Discussed Condition With: patient, RN (2) Asthma exacerbation Qualifiers: Asthma severity: moderate Asthma persistence: persistent Qualified Code(s): J45.41 - Moderate persistent asthma with (acute) exacerbation
[2018-01-31] MEDS: Pantoprazole Inj 40 MG Vial IV.PUSH SCH (17:46)
[2018-01-31] MEDS: Azithromycin Inj 500 MG in Sodium Chlor 0.9% Inj 250 ML IV.SIG SCH (23:46)
[2018-02-01] MEDS: MethylPREDNISolone Sod Succinate Inj 40 MG/ML Vial IV.PUSH SCH ×4 (00:41→18:25)
[2018-02-01 04:43] LABS: Baso % (Auto) 0.1 % (0.0-2.0); Hemoglobin 14.9 gm/dL (13.0-17.0); Lymph # (Auto) 0.4 th/mm3 (1.0-4.8); Lymph % (Auto) 2.1 % (9.0-44.0); Mean Corpuscular HGB Conc 32.4 % (32.0-36.0); Mean Corpuscular Hemoglobin 27.1 pg (27.0-34.0); Mean Corpuscular Volume 83.5 fL (80.0-100.0); Mean Platelet Volume 8.6 fL (7.0-11.0); Mono # (Auto) 0.8 th/mm3 (0.0-0.9); Mono % (Auto) 4.4 % (0.0-8.0); Neut # (Auto) 17.7 th/mm3 (1.8-7.7); Neut % (Auto) 93.4 % (16.0-70.0); Platelet Count 270 th/mm3 (150-450); Red Blood Count 5.51 mil/mm3 (4.50-5.90); Red Cell Distribution Width 14.1 % (11.6-17.2); White Blood Count 18.9 th/mm3 (4.0-11.0)
[2018-02-01] MEDS: Piperacil/Tazo 4.5 GM Premix 4.5 GM/100 ML BAG IV.SIG SCH ×4 (05:04→23:40)
[2018-02-01] MEDS: Insulin NovoLIN Regular Correctional Sugar Inj SQ SCH ×3 (05:22→17:43)
[2018-02-01 05:41] LABS: Carbon Dioxide 31.1 meq/L (21.0-32.0); Potassium 4.1 meq/L (3.5-5.1)
[2018-02-01] MEDS: dilTIAZem 60 MG Tablet PO SCH ×4 (08:05→20:43)
[2018-02-01] MEDS: Heparin - SQ 10,000 UNITS/ML Vial SQ SCH ×2 (08:05→20:43)
[2018-02-01] MEDS: Budesonide-Formoterol 160/4.5 MCG 6 GM Inhaler INH SCH ×2 (08:07→20:43)
[2018-02-01] MEDS: Sod Chloride 0.9% Inj 1,000 ML IV.CONT SCH (11:32)
[2018-02-01 12:09] LABS: Hemoglobin A1c 6.1 % (4.3-6.0)
--- NOTE | 2018-02-01 16:19 | P.PNPL ---
Subjective Interval history: 67 YOAA male with COPD exac, hypercapnoic RF Weaned to NC Desaturates on RA Feels better Alert, awake, follows commands No Fever Physical Exam Vital signs: Vital Signs 01/31/18 18:00 01/31/18 19:52 01/31/18 20:00 Temperature 97.8 F Pulse Rate 89 79 79 Respiratory Rate 20 29 H Blood Pressure 153/84 H Pulse Oximetry 100 100 Pulse Oximetry [Exertion on Room Air] Pulse Oximetry [Exertion with Oxygen] Pulse Oximetry [Resting on Room Air] 01/31/18 22:00 02/01/18 00:00 02/01/18 00:10 Temperature 98.2 F Pulse Rate 82 75 82 Respiratory Rate 35 H 22 Blood Pressure 138/65 Pulse Oximetry 100 Pulse Oximetry [Exertion on Room Air] Pulse Oximetry [Exertion with Oxygen] Pulse Oximetry [Resting on Room Air] 02/01/18 01:50 02/01/18 02:00 02/01/18 04:00 Temperature 97.3 F L Pulse Rate 84 70 Respiratory Rate 32 H 37 H Blood Pressure 153/89 H Pulse Oximetry 98 Pulse Oximetry [Exertion on Room Air] Pulse Oximetry [Exertion with Oxygen] Pulse Oximetry [Resting on Room Air] 02/01/18 04:15 02/01/18 05:49 02/01/18 06:00 Temperature Pulse Rate 75 69 Respiratory Rate 18 30 H Blood Pressure Pulse Oximetry Pulse Oximetry [Exertion on Room Air] Pulse Oximetry [Exertion with Oxygen] Pulse Oximetry [Resting on Room Air] 02/01/18 06:36 02/01/18 07:55 02/01/18 08:00 Temperature 98.0 F Pulse Rate 78 83 Respiratory Rate 24 18 22 Blood Pressure 158/89 H Pulse Oximetry 95 99 Pulse Oximetry [Exertion on Room Air] Pulse Oximetry [Exertion with Oxygen] Pulse Oximetry [Resting on Room Air] 02/01/18 10:00 02/01/18 11:00 02/01/18 12:00 Temperature 98.2 F Pulse Rate 74 69 76 Respiratory Rate 18 22 Blood Pressure 151/80 H Pulse Oximetry 90 L Pulse Oximetry [Exertion on Room Air] Pulse Oximetry [Exertion with Oxygen] Pulse Oximetry [Resting on Room Air] 02/01/18 12:17 02/01/18 14:33 Temperature Pulse Rate 68 Respiratory Rate 18 Blood Pressure Pulse Oximetry Pulse Oximetry [Exertion on Room Air] 83 L Pulse Oximetry [Exertion with Oxygen] 93 L Pulse Oximetry [Resting on Room Air] 90 L Intake & Output 01/31/18 02/01/18 02/01/18 18:59 06:59 18:59 Intake Total 1600 / 1600 1700 / 1700 1800 / 1800 Output Total 500 / 500 650 / 650 Balance 1100 / 1100 1050 / 1050 1800 / 1800 Weight 61 kg Intake: IV 1200 / 1200 1200 / 1200 1800 / 1800 NS Inj 1,000 ML @ 75 mls/hr IV. 1000 / 1000 1000 / 1000 1600 / 1600 CONT .[id number] ANTONI Rx#:[id number] Zosyn 4.5 GM Premix 4.5 gm In 200 / 200 200 / 200 200 / 200 100 ml @ 200 mls/hr IV.SIG Q6H ANTONI Rx#:[id number] Oral 400 / 400 500 / 500 Output: Urine 500 / 500 650 / 650 Other: # Voids 1 Date of Last Bowel Movement 01/31/18 01/31/18 01/31/18 # Bowel Movements 1 0 GENERAL: Elderly AA male, NAD SKIN: Warm and dry. HEAD: Normocephalic. EYES: No scleral icterus. No injection or drainage. NECK: Supple, trachea midline. No JVD or lymphadenopathy. CARDIOVASCULAR: Regular rate and rhythm without murmurs, gallops, or rubs. RESPIRATORY: Breath sounds equal bilaterally. No accessory muscle use. GASTROINTESTINAL: Abdomen soft, non-tender, nondistended. MUSCULOSKELETAL: No cyanosis, or edema. BACK: Nontender without obvious deformity. No CVA tenderness. Assessment and Plan - Plan IMPRESSION: Hypercapnoic RF COPD Exac HTN Leucocytosis PLAN: Supplement 02 BIPAP prn IV Solumedrol Aerosol nebs cont Abx SQ heparin will FU in AM.
--- NOTE | 2018-02-01 16:59 | P.PNIM ---
Subjective Interval history: 67-year-old male admitted for COPD exacerbation. This morning he was eager to go home, stating that he had important matters to take care of. I asked him to wait for an oxygen walk test which he failed with 83% oxygenation with mild exertion. This afternoon he admits he wanted to go home to see his great- granddaughter before she left, but he admits that he does not want to go home to early and is willing to stay for further treatment. Physical Exam Vital signs: Vital Signs 01/31/18 18:00 01/31/18 19:52 01/31/18 20:00 Temperature 97.8 F Pulse Rate 89 79 79 Respiratory Rate 20 29 H Blood Pressure 153/84 H Pulse Oximetry 100 100 Pulse Oximetry [Exertion on Room Air] Pulse Oximetry [Exertion with Oxygen] Pulse Oximetry [Resting on Room Air] 01/31/18 22:00 02/01/18 00:00 02/01/18 00:10 Temperature 98.2 F Pulse Rate 82 75 82 Respiratory Rate 35 H 22 Blood Pressure 138/65 Pulse Oximetry 100 Pulse Oximetry [Exertion on Room Air] Pulse Oximetry [Exertion with Oxygen] Pulse Oximetry [Resting on Room Air] 02/01/18 01:50 02/01/18 02:00 02/01/18 04:00 Temperature 97.3 F L Pulse Rate 84 70 Respiratory Rate 32 H 37 H Blood Pressure 153/89 H Pulse Oximetry 98 Pulse Oximetry [Exertion on Room Air] Pulse Oximetry [Exertion with Oxygen] Pulse Oximetry [Resting on Room Air] 02/01/18 04:15 02/01/18 05:49 02/01/18 06:00 Temperature Pulse Rate 75 69 Respiratory Rate 18 30 H Blood Pressure Pulse Oximetry Pulse Oximetry [Exertion on Room Air] Pulse Oximetry [Exertion with Oxygen] Pulse Oximetry [Resting on Room Air] 02/01/18 06:36 02/01/18 07:55 02/01/18 08:00 Temperature 98.0 F Pulse Rate 78 83 Respiratory Rate 24 18 22 Blood Pressure 158/89 H Pulse Oximetry 95 99 Pulse Oximetry [Exertion on Room Air] Pulse Oximetry [Exertion with Oxygen] Pulse Oximetry [Resting on Room Air] 02/01/18 10:00 02/01/18 11:00 02/01/18 12:00 Temperature 98.2 F Pulse Rate 74 69 76 Respiratory Rate 18 22 Blood Pressure 151/80 H Pulse Oximetry 90 L Pulse Oximetry [Exertion on Room Air] Pulse Oximetry [Exertion with Oxygen] Pulse Oximetry [Resting on Room Air] 02/01/18 12:17 02/01/18 14:33 Temperature Pulse Rate 68 Respiratory Rate 18 Blood Pressure Pulse Oximetry Pulse Oximetry [Exertion on Room Air] 83 L Pulse Oximetry [Exertion with Oxygen] 93 L Pulse Oximetry [Resting on Room Air] 90 L Intake & Output 01/31/18 02/01/18 02/01/18 18:59 06:59 18:59 Intake Total 1600 / 1600 1700 / 1700 1800 / 1800 Output Total 500 / 500 650 / 650 Balance 1100 / 1100 1050 / 1050 1800 / 1800 Weight 61 kg Intake: IV 1200 / 1200 1200 / 1200 1800 / 1800 NS Inj 1,000 ML @ 75 mls/hr IV. 1000 / 1000 1000 / 1000 1600 / 1600 CONT .[id number] ANTONI Rx#:[id number] Zosyn 4.5 GM Premix 4.5 gm In 200 / 200 200 / 200 200 / 200 100 ml @ 200 mls/hr IV.SIG Q6H ANTONI Rx#:[id number] Oral 400 / 400 500 / 500 Output: Urine 500 / 500 650 / 650 Other: # Voids 1 Date of Last Bowel Movement 01/31/18 01/31/18 01/31/18 # Bowel Movements 1 0 Narrative: GENERAL: AAOx3, no acute distress SKIN: Warm and dry. No rashes HEAD: Atruamtic, normocephalic. EYES: No scleral icterus. No injection or drainage. ENT: Moist mucous membranes, patent nares, no erythema of oropharynx. NECK: Supple, trachea midline. No JVD or lymphadenopathy. Normal thyroid. CARDIOVASCULAR: Regular rate and rhythm. No murmurs, gallops, or rubs. RESPIRATORY: Congestive sounds and scattered wheezing, suboptimal air exchange. No accessory muscle use. GASTROINTESTINAL: Abdomen soft, non-tender, nondistended, normal active bowel sounds MUSCULOSKELETAL: No cyanosis, or edema. NEURO: CN II-XII grossly intact, no focal deficits, no slurring of speech Results - Labs CBC & Chem 7: 02/01/18 03:07 02/01/18 03:07 Laboratory Results - last 24 hr 01/31/18 01/31/18 02/01/18 17:45 23:51 03:07 WBC 18.9 H RBC 5.51 Hgb 14.9 Hct 46.0 MCV 83.5 MCH 27.1 MCHC 32.4 RDW 14.1 Plt Count 270 MPV 8.6 Neut % (Auto) 93.4 H Lymph % (Auto) 2.1 L [place] % (Auto) 4.4 Eos % (Auto) 0.0 Baso % (Auto) 0.1 Neut # (Auto) 17.7 H Lymph # (Auto) 0.4 L [place] # (Auto) 0.8 Eos # (Auto) 0.0 Baso # (Auto) 0.0 WBC Differential . Differential Comment Auto diff final Sodium Potassium Chloride Carbon Dioxide Anion Gap BUN Creatinine Estimated GFR POC Glucose 109 124 H Random Glucose Hemoglobin A1c Calcium 02/01/18 02/01/18 02/01/18 03:07 03:07 05:21 WBC RBC Hgb Hct MCV MCH MCHC RDW Plt Count MPV Neut % (Auto) Lymph % (Auto) [place] % (Auto) Eos % (Auto) Baso % (Auto) Neut # (Auto) Lymph # (Auto) [place] # (Auto) Eos # (Auto) Baso # (Auto) WBC Differential Differential Comment Sodium 144 Potassium 4.1 Chloride 106 Carbon Dioxide 31.1 Anion Gap 7 BUN 22 H Creatinine 1.19 Estimated GFR 74 L POC Glucose 138 H Random Glucose 189 H Hemoglobin A1c 6.1 H Calcium 8.0 L D 02/01/18 11:32 WBC RBC Hgb Hct MCV MCH MCHC RDW Plt Count MPV Neut % (Auto) Lymph % (Auto) [place] % (Auto) Eos % (Auto) Baso % (Auto) Neut # (Auto) Lymph # (Auto) [place] # (Auto) Eos # (Auto) Baso # (Auto) WBC Differential Differential Comment Sodium Potassium Chloride Carbon Dioxide Anion Gap BUN Creatinine Estimated GFR POC Glucose 180 H Random Glucose Hemoglobin A1c Calcium Assessment and Plan - Assessment (1) Hypertension Code(s): I10 - Essential (primary) hypertension Status: Chronic (2) Asthma exacerbation Code(s): J45.901 - Unspecified asthma with (acute) exacerbation Status: Acute - Plan This is a 67-year-old AAM with past medical history of Asthma, COPD, Smoker admitted on 01/30 for worsening shortness of breath with productive cough. Patient required BiPAP in the ICU, now is more stable. COPD exacerbation Patient placed in ICU for hypercapnic respiratory failure Continue IV Solu-Medrol, duo nebs every 4 scheduled, albuterol as needed, Symbicort, oxygen supplementation Continue azithromycin and Zosyn for coverage of infectious triggers Budesonide nebs added Acapella and incentive spirometry added Appreciate pulmonology consult Hyperglycemia Secondary to steroids Hemoglobin A1c of 6.1 Sliding scale insulin coverage as needed Hypertension Continue home dose of Cardizem 60 mg 4 times daily DVT Prophylaxis Heparin (2) Asthma exacerbation Qualifiers: Asthma severity: moderate Asthma persistence: persistent Qualified Code(s): J45.41 - Moderate persistent asthma with (acute) exacerbation
[2018-02-01] MEDS: Pantoprazole Inj 40 MG Vial IV.PUSH SCH (17:43)
[2018-02-01 21:26] VITALS: TEMP 98
[2018-02-02] MEDS: MethylPREDNISolone Sod Succinate Inj 40 MG/ML Vial IV.PUSH SCH (00:38)
[2018-02-02] MEDS: Azithromycin Inj 500 MG in Sodium Chlor 0.9% Inj 250 ML IV.SIG SCH (00:39)
[2018-02-02] MEDS: Insulin NovoLIN Regular Correctional Sugar Inj SQ SCH (00:47)
[2018-02-02 01:17] VITALS: BP 128/70; O2SAT 100
[2018-02-02 03:46] VITALS: PULSE 70
[2018-02-02] MEDS: Piperacil/Tazo 4.5 GM Premix 4.5 GM/100 ML BAG IV.SIG SCH (04:33)
[2018-02-02 04:36] VITALS: RESP 20
--- NOTE | 2018-02-02 05:34 | P.AMA ---
AMA Note - AMA Note AMA Statement: Patient José Antonio Rivera JR has decided to leave the hospital against medical advice. This patient has the capacity to refuse care and understands the risks of leaving, including permanent disability and/or , and has had an opportunity to ask questions about his/her condition. The patient has been informed that he/she may return for care at any time, and follow up has been arranged/advised. - AMA Note Discharge Disposition: 07 Against Medical Advice Patient Condition on Discharge: Critical
--- NOTE | 2018-02-22 16:50 | P.DS ---
Date of admission: 01/28/18 23:04 Primary care physician: UNKNOWN Anticipated date of discharge: 02/02/18 Brief History from admission: 7-year-old male with a history of asthma who presents with 2-day history of worsening shortness of breath, cough productive of white sputum. He says his significant other has been cleaning the house and the cleaning solution seems to have aggravated his breathing. He has tried prednisone without improvement. He denies any fevers, chills. Denies any chest pain. Patient is currently on BiPAP which limits history. DS: Diagnosis - Discharge Diagnosis (1) Hypertension Status: Chronic (2) Asthma exacerbation Status: Acute DS: Summary Hospital Course: Patient was admitted for COPD exacerbation. He failed an oxygen walk test, and agreed to stay. He later changed his mind and left AMA. See AMA summary for details. - Time Spent with Patient Total time spent providing and/or coordinating discharge services: Less than 30 minutes Results Procedures completed during hospitalization: none - Impressions ITS Impressions Chest X-Ray 01/30/18 00:00 CONCLUSION: Hyperinflated lungs characteristic of COPD No evidence of acute process. Discharge Plan - Discharge Disposition Patient Disposition: 07 Against Medical Advice - Discharge Condition Condition: Critical - Discharge Order Discharge Orders: AMA Discharge (Routine); Ordered 02/02/18 Ordered By: Rosita Restrepo - Physicians Team Primary Care Provider: UNKNOWN, Attending Provider: Lisbeth Mcgovern Other Providers: Alejandra Roberts ; Linda Mckeon MD ; Jesica Whitman MD
== END 2018-02-02 05:32 | disposition left against medical advice (07) ==
LOC: NEDA 18:59 → NEPE 18:59 → NEDH 01-29 02:56 → HCPC 01-29 08:00 → NEDH 01-29 08:26 → HCIS 01-30 07:46 → HIMC 01-30 16:30 → N07 02-01 18:33
PROVIDERS: ADMIT Hospitalist; ATTEND Hospitalist